=== PATIENT | female | born 1950 | race African-American/Black ===

== ENCOUNTER → 2017-01-30 | Day surgery (SDC) | payer MEDICARE, MEDICAID ==
[~2017-01-30] MED LIST: FLU VACC QS2017-18 36 mo. & older 0.5 ML SYRINGE IM ONE; Iopamidol 300 61% 100 ML VIAL FS ONE
--- OUTSIDE RECORDS SUMMARY | 2017-01-30 06:38 | XMS | Clinical Summary ---
:1950 Author Organization [facility] Address [address] [place] [address] Phone Care Team Providers Name Role Phone , Primary Care Provider Unavailable Allergies No Known Allergies Current Medications Prescription Sig. Disp. Refills Start Date End Date Status aspirin 81 MG EC Take 81 mg by Active tablet mouth daily. PROAIR HFA 90 1 puff every 4 05/01/2015 Active mcg/actuation inhaler (four) hours as needed . salmeterol (SEREVENT) Inhale 1 puff by Active 50 mcg/dose diskus mouth via inhaler inhaler 2 (two) times daily. pantoprazole Take 1 tablet (40 0 09/16/2015 Active (PROTONIX) 40 MG mg total) by tablet mouth daily. sevelamer (RENVELA) Take 800 mg by Active 800 mg tablet mouth 3 (three) times daily with meals. cinacalcet (SENSIPAR) Take 60 mg by Active 60 MG tablet mouth daily. atorvastatin Take 1 tablet (20 30 tablet 11 06/17/2016 06/17/2017 Active (LIPITOR) 20 MG mg total) by tablet mouth nightly. isosorbide Take 0.5 tablets 15 tablet 11 06/17/2016 06/17/2017 Active mononitrate (IMDUR) (15 mg total) by 30 MG 24 hr tablet mouth daily. torsemide (DEMADEX) Take 2 tablets 60 tablet 0 06/17/2016 06/17/2017 Active 20 MG tablet (40 mg total) by mouth daily. glimepiride (AMARYL) Take 4 mg by Active 4 MG tablet mouth 2 (two) times daily. gabapentin Take 100 mg by Active (NEURONTIN) 100 MG mouth 2 (two) capsule times daily as needed. multivitamin with Take 1 tablet by Active minerals tablet mouth daily. losartan (COZAAR) 50 Take 1 tablet (50 30 tablet 0 09/15/2016 Active MG tablet mg total) by mouth 2 (two) times daily. cloNIDine HCl Take 1 tablet 60 tablet 0 09/15/2016 Active (CATAPRES) 0.2 MG (0.2 mg total) by tablet mouth 3 (three) times daily. carvedilol (COREG) 25 Take 1 tablet (25 60 tablet 0 09/15/2016 Active MG tablet mg total) by mouth 2 (two) times daily with breakfast and dinner. amLODIPine (NORVASC) Take 1 tablet (10 30 tablet 0 09/15/2016 Active 10 MG tablet mg total) by mouth daily. senna-docusate Take 1 tablet by 30 tablet 0 12/10/2016 12/10/2017 Active (SENOKOT S) 8.6-50 mg mouth nightly. per tablet Active Problems Problem Noted Date Chronic idiopathic constipation 12/10/2016 Abdominal pain, epigastric 12/09/2016 Vomiting 12/09/2016 Elevated troponin 12/09/2016 End stage renal disease (HCC) 09/12/2016 Normochromic normocytic anemia 06/11/2016 Volume overload 06/10/2016 Type 2 diabetes mellitus with hyperglycemia, without long-term current use of insulin ([facility]) Obesity (BMI 30-39.9) 06/10/2016 Overview: Body mass index is 31.26 kg/(m^2). on 06/11/2016 Neuropathy (HCC) 06/04/2016 Angiopathy, peripheral ([facility]) 06/04/2016 Diastolic CHF, acute on chronic ([facility]) 09/09/2014 Physical deconditioning 06/17/2014 Lower urinary tract infectious disease 06/04/2014 Overview: UPDATED BY ICD10 SNOMED/IMO UPDATES Hypertension 05/25/2014 Overview: She remains poorly controlled and in need of more aggressive Rx. She may need minoxidil. 08/20/14 Supa Kyle MD Resolved Problems Problem Noted Date Resolved Date Chest pain, unspecified type 06/10/2016 09/13/2016 Essential hypertension 06/10/2016 09/13/2016 Acute on chronic combined systolic and diastolic heart 06/10/2016 09/13/2016 failure ([facility]) ESRD (end stage renal disease) ([facility]) 06/10/2016 09/13/2016 Hypoxia 06/14/2015 09/13/2016 Hyperkalemia 06/13/2015 09/13/2016 SOB (shortness of breath) 06/13/2015 09/13/2016 Decubitus ulcer of right heel 05/03/2015 09/13/2016 Hypoxic encephalopathy ([facility]) 03/31/2015 09/13/2016 Respiratory failure with hypoxia ([facility]) 03/30/2015 09/13/2016 hypoxic encephalopathy, moderate 03/30/2015 03/31/2015 Bacteremia 03/25/2015 09/13/2016 Wound infection 03/25/2015 09/13/2016 Pulmonary edema 03/23/2015 09/13/2016 Respiratory distress 03/23/2015 06/14/2015 Chronic kidney disease (CKD) 03/23/2015 09/13/2016 CHF (congestive heart failure), NYHA class III, acute on 03/23/20152014 chronic, combined ([facility]) Accelerated hypertension 09/09/2014 09/13/2016 Sacral decubitus ulcer 09/09/2014 09/13/2016 Metabolic encephalopathy 06/16/2014 09/13/2016 Altered mental status 06/12/2014 09/13/2016 Hypoglycemia 06/12/2014 09/13/2016 Hypomagnesemia 06/04/2014 09/13/2016 Left ear hearing loss 06/03/2014 09/13/2016 Pulmonary HTN ([facility]) 05/30/2014 09/13/2016 CHF (congestive heart failure) ([facility]) 05/25/2014 05/25/2014 Acute on chronic systolic heart failure ([facility]) 05/25/2014 06/16/2014 Decubitus ulcer of sacral region, stage 2 05/25/2014 09/13/2016 Delirium 02/12/2014 05/25/2014 Dysphagia 02/11/2014 05/25/2014 CKD (chronic kidney disease) stage 3, GFR 30-59 ml/min 02/03/2014 05/25/2014 Respiratory failure ([facility]) 01/27/2014 05/25/2014 Pulmonary edema with congestive heart failure with reduced 01/26/20142014 LV function ([facility]) CAD (coronary artery disease) 01/21/2014 09/13/2016 Renal failure 01/21/2014 02/01/2014 Anemia 01/21/2014 09/13/2016 Hypokalemia 01/21/2014 02/01/2014 Acute on chronic systolic CHF (congestive heart failure), 01/14/20142014 NYHA class 3 ([facility]) Respiratory distress 01/14/2014 05/25/2014 Acute on chronic renal failure ([facility]) 01/14/2014 09/13/2016 Leucocytosis 01/14/2014 02/01/2014 DM (diabetes mellitus) ([facility]) 01/14/2014 05/25/2014 Hypertensive emergency 01/14/2014 02/01/2014 Kidney insufficiency 07/18/2013 05/25/2014 Dyspnea 07/14/2013 05/25/2014 SOB (shortness of breath) 07/13/2013 05/25/2014 Hypertension, uncontrolled 07/13/2013 05/25/2014 Diabetes ([facility]) 07/13/2013 05/25/2014 Diabetes mellitus ([facility]) 09/13/2016 Hypertension 09/13/2016 CHF (congestive heart failure) ([facility]) 09/13/2016 Hypertension 09/13/2016 Diabetes mellitus ([facility]) 09/13/2016 Pulmonary edema 09/13/2016 Combined systolic and diastolic cardiac dysfunction 09/13/2016 Combined systolic and diastolic cardiac dysfunction 09/13/2016 Encounters Date Type Specialty Care Team Description 12/09/2016 - Emergency General Internal Gallo Gilbert Abdominal pain, 12/10/2016 Medicine MD Doug epigastric (Primary Kelly Arzate Dx);Non-intractable MD Tammy vomiting with nausea, Colton Andrea MD unspecified vomiting type;Elevated troponin;End stage renal disease ([facility]);Normochromic normocytic anemia;Obesity (BMI 30-39.9) 12/09/2016 Orders Only General Internal Medicine from Last 3 Months Immunizations Name Dates Previously Given Next Due Influenza Three-TIV PF 5+ YRS 03/23/2015 Social History Tobacco Use Types Packs/Day Years Used Date Never Smoker Smokeless Tobacco: Never Used Alcohol Use Drinks/Week oz/Week Comments No Sex Assigned at Date Recorded Not on file Last Filed Vital Signs Vital Sign Reading Time Taken Blood Pressure 100/54 12/10/2016 10:30 AM CDT Pulse 73 12/10/2016 10:30 AM CDT Temperature 36.7 C (98 F) 12/10/2016 10:30 AM CDT Respiratory Rate 18 12/10/2016 10:30 AM CDT Oxygen Saturation 93% 12/10/2016 10:30 AM CDT Inhaled Oxygen Concentration - - Weight 98.8 kg (217 lb 14.4 oz) 12/09/2016 11:06 PM CDT Height 167.6 cm (5' 6") 12/09/2016 11:06 PM CDT Body Mass Index 35.17 12/09/2016 11:06 PM CDT Plan of Treatment Health Maintenance Due Date Last Done Comments INFLUENZA VACCINE 01/26/2017 Results RHYTHM STRIP - SCAN (01/13/2017 10:41 AM)Only the most recent of2 resultswithin the time period is included.Urinalysis w/Microscopic + Reflex to Culture (2016 12:27 PM) Component Value Ref Range Color, UA Yellow Clarity, UA Hazy Specific [place], UA 1.011 1.001 - 1.035 pH, UA 6.0 5.0 - 8.0 Protein, UA 200 mg/dL(A) Negative Glucose, UA Negative Negative Ketones, UA Negative Negative Bilirubin, UA Negative Negative Blood, UA Negative Negative Nitrite, UA Negative Negative Leukocytes, UA Large(A) Negative Urobilinogen, UA 3.0(H) 0.2 - 1.0 mg/dL RBC, UA 0 /HPF WBC, UA 143 /HPF Bacteria, UA Few Squam Epithel, UA 1 /HPF Specimen Source Specimen Performing Laboratory Urine - Urine, Straight Catheter [address] [address] Urine culture (12/10/2016 12:27 PM) Component Value Ref Range Result >100,000 col/mL Escherichia coli(A) Specimen Performing Laboratory Urine - Urine, Straight Catheter [address] [address] Organism Antibiotic Method Susceptibility Escherichia coli Amikacin 4: Susceptible Escherichia coli Ampicillin + Sulbactam >=32: Resistant Escherichia coli Aztreonam <=1: Susceptible Escherichia coli Cefepime <=1: Susceptible Escherichia coli Cefoxitin <=4: Susceptible Escherichia coli Ceftazidime <=1: Susceptible Escherichia coli Ceftriaxone <=1: Susceptible Escherichia coli Ertapenem <=0.5: Susceptible Escherichia coli Gentamicin >=16: Resistant Escherichia coli Levofloxacin >=8: Resistant Escherichia coli Meropenem <=0.25: Susceptible Escherichia coli Nitrofurantoin <=16: Susceptible Escherichia coli Piperacillin + Tazobactam <=4: Susceptible Escherichia coli Tetracycline >=16: Resistant Escherichia coli Tobramycin 8: Resistant Escherichia coli Trimethoprim + Sulfamethoxazole >=320: Resistant POC-Glucose meter (12/10/2016 10:34 AM)Only the most recent of3 resultswithin the time period is included. Component Value Ref Range POC-Glucose Meter 273(H)Comment:TESTED AT [address] 70 - 110 mg/[place] [address] Specimen Performing Laboratory Blood [address] [address] CBC with platelet count + automated diff (12/10/2016 5:07 AM)Only the most recent of2 resultswithin the time period is included. Component Value Ref Range WBC 7.0 3.5 - 10.5 K/L RBC 3.65(L) 3.93 - 5.22 M/L Hemoglobin 9.9(L) 11.2 - 15.7 GM/DL Hematocrit 30.6(L) 34.1 - 44.9 % MCV 83.8 79.4 - 94.8 fL MCH 27.1 25.6 - 32.2 pg MCHC 32.4 32.2 - 35.5 GM/DL RDW 20.2(H) 11.7 - 14.4 % Platelets 161 150 - 450 K/CU MM MPV 11.2 9.4 - 12.3 fL nRBC 0 0 - 0 /100 WBC % Neutros 70 % % Lymphs 19 % % Monos 10 % % Eos 1 % % Baso 0 % # Neutros 4.89 1.56 - 6.13 K/L # Lymphs 1.30 1.18 - 3.74 K/L # Monos 0.72(H) 0.24 - 0.36 K/L # Eos 0.10 0.04 - 0.36 K/L # Baso 0.01 0.01 - 0.08 K/L Immature Granulocytes-Relative 0 0 - 1 % Specimen Performing Laboratory Blood [address] [address] Troponin I (12/10/2016 5:07 AM)Only the most recent of3 resultswithin the time period is included. Component Value Ref Range Troponin I 0.05(H) 0.00 - 0.03 ng/mL Specimen Performing Laboratory Blood [address] [address] Narrative Effective 03/15/2014: Reference Range Change New: 0.00-0.03 Previous 0.00-0.15 Troponin I (TnI) levels must be interpreted in the context of the presenting symptoms and the clinical findings. Elevated TnI levels indicate myocardial damage, but are not specific for ischemic heartdisease. Elevated TnI levels are seen in patients with other cardiac conditions (including myocarditis and congestive heart failure), and slight TnI elevations occur in patients with other conditions, including sepsis , renal failure, acidosis, acute neurological disease, and persistent tachyarrhythmia. CBC with platelet count + automated diff (12/10/2016 5:07 AM)Only the most recent of2 resultswithin the time period is included. Specimen Performing Laboratory Blood Narrative The following orders were created for panel order CBC with platelet count + automated diff. Procedure Abnormality Status --------- ------ CBC with platelet count ...[[id number]]AbnormalFinal result Please view results for these tests on the individual orders. Hemoglobin A1c (12/10/2016 5:07 AM) Component Value Ref Range Hemoglobin A1C 10.3(H) 4.3 - 6.1 % Specimen Performing Laboratory Blood [address] [address] Creatine Kinase (CK), Total and MB (12/10/2016 5:07 AM)Only the most recent of3 resultswithin the time period is included. Component Value Ref Range Total CK 46 29 - 200 U/L CK-MB 1.0 0.0 - 6.6 ng/mL MB Relative Index 2.2 % Specimen Performing Laboratory Blood [address] [address] Narrative Effective 03/15/2014: CK-MB Reference Range Change New: 0.0-6.6Previous: 0.0-4.9 CK-MB Reference Range: <6.7Normal 6.7-10.0Borderline >10.0 Abnormal Basic metabolic panel (12/10/2016 5:07 AM)Only the most recent of2 resultswithin the time period is included. Component Value Ref Range Sodium 139 136 - 145 meq/L Potassium 5.1 3.5 - 5.1 meq/L Chloride 103 98 - 107 meq/L CO2 23 22 - 29 meq/L BUN 54(H) 7 - 21 mg/dL Creatinine 5.87(H) 0.57 - 1.25 mg/dL Glucose 243(H) 70 - 105 mg/dL Calcium 7.7(L) 8.4 - 10.2 mg/dL EGFR 9Comment:ESTIMATED GFR IS NOT ACCURATE CREATININE mL/min/1.73 sq m CLEARANCE IN PREDICTING GLOMERULAR FILTRATION RATE. ESTIMATED GFR IS NOT APPLICABLE FOR DIALYSIS PATIENTS. Specimen Performing Laboratory [place] [address] CT abdomen/pelvis without iv contrast (12/09/2016 6:46 PM) Specimen Performing Laboratory [employer] Narrative FINAL REPORT HISTORY : Abdominal pain, unspecified EMESIS ABDOMINAL PAIN Technique: Multiple axial images of the abdomen and pelvis were performed without the administration of IV or oral contrast. This exam was performed according to our departmental dose optimization program which includes automated exposure control, adjustment of the mA and/or kV according to patient size and/or use of iterative reconstructive technique. COMPARISON :09/13/2016 COMMENT : The patient does have cardiomegaly. There is some bibasilar linear subsegmental atelectasis versus scarring. There are some areas of mosaic attenuation/perfusion in the lung bases. The visualized liver, spleen, adrenal glands, gallbladder, pancreas, stomach and duodenum are within normal limits. There is atherosclerotic vascular disease. The kidneys are atrophic. Arising from the upper pole of the left kidney, there is an indeterminate 5.5 x 4.2 cm hypodense/cystic lesion. Further evaluation with an ultrasound is advised. There is no abdominal, retroperitoneal or pelvic lymphadenopathy. The osseous structures as well as the subcutaneous soft tissues are without any abnormalities. There is no free fluid or free air in the abdomen or pelvis. No findings of any bowel obstruction. The small bowel is within normal limits. The patient does have some long segment thickening identified of the left colon extending from the proximal descending colon to the distal sigmoid colon. While the findings may be related to underdistention, a process such as a nonspecific inflammatory versus infectious versus ischemic colitis cannot be entirely excluded. The appendix is visualized and is within normal limits. The uterus may be atrophic or the patient may be status post hysterectomy. The findings should be correlated with the patient's surgical history. Some nonspecific air is seen within the bladder. Findings could be related to recent instrumentation. There is some mild nonspecific thickening of the bladder wall that may be related to underdistention. A diffuse process such as cystitis or other infiltrative process cannot be entirely excluded. Multilevel degenerative disc changes of the thoracolumbar spine are seen. There is a small midline umbilical antral hernia containing fat. No bowel contents are seen within the hernia. Impression: 1. Examination limited without the administration of IV or oral contrast. 2. Long segment thickening of the left colon, underdistention versus nonspecific colitis. 3. Atrophic [place]ka kidneys. There is an indeterminate cystic/hypodense lesion in the left renal upper pole. Correlation with an ultrasound or CT, renal mass protocol, is advised. 4. Cardiomegaly. 5. Atherosclerotic vascular disease. 6. Nonspecific air within the bladder. There is some mild nonspecific bladder wall thickening. Signed: Santiago Ahn MD Report Verified Date/Time:12/09/2016 18:54:11 Reading Location: [facility] C013Y CT Body Reading Room Procedure Note Interface, External Ris In - 12/09/2016 6:56 PM CDT FINAL REPORT HISTORY : Abdominal pain, unspecified EMESIS ABDOMINAL PAIN Technique: Multiple axial images of the abdomen and pelvis were performed without the administration of IV or oral contrast. This exam was performed according to our departmental dose optimization program which includes automated exposure control, adjustment of the mA and/or kV according to patient size and/or use of iterative reconstructive technique. COMPARISON : 09/13/2016 COMMENT : The patient does have cardiomegaly. There is some bibasilar linear subsegmental atelectasis versus scarring. There are some areas of mosaic attenuation/perfusion in the lung bases. The visualized liver, spleen, adrenal glands, gallbladder, pancreas, stomach and duodenum are within normal limits. There is atherosclerotic vascular disease. The kidneys are atrophic. Arising from the upper pole of the left kidney, there is an indeterminate 5.5 x 4.2 cm hypodense/cystic lesion. Further evaluation with an ultrasound is advised. There is no abdominal, retroperitoneal or pelvic lymphadenopathy. The osseous structures as well as the subcutaneous soft tissues are without any abnormalities. There is no free fluid or free air in the abdomen or pelvis. No findings of any bowel obstruction. The small bowel is within normal limits. The patient does have some long segment thickening identified of the left colon extending from the proximal descending colon to the distal sigmoid colon. While the findings may be related to underdistention, a process such as a nonspecific inflammatory versus infectious versus ischemic colitis cannot be entirely excluded. The appendix is visualized and is within normal limits. The uterus may be atrophic or the patient may be status post hysterectomy. The findings should be correlated with the patient's surgical history. Some nonspecific air is seen within the bladder. Findings could be related to recent instrumentation. There is some mild nonspecific thickening of the bladder wall that may be related to underdistention. A diffuse process such as cystitis or other infiltrative process cannot be entirely excluded. Multilevel degenerative disc changes of the thoracolumbar spine are seen. There is a small midline umbilical antral hernia containing fat. No bowel contents are seen within the hernia. Impression: 1. Examination limited without the administration of IV or oral contrast. 2. Long segment thickening of the left colon, underdistention versus nonspecific colitis. 3. Atrophic [place] kidneys. There is an indeterminate cystic/hypodense lesion in the left renal upper pole. Correlation with an ultrasound or CT, renal mass protocol, is advised. 4. Cardiomegaly. 5. Atherosclerotic vascular disease. 6. Nonspecific air within the bladder. There is some mild nonspecific bladder wall thickening. Signed: Santiago Ahn MD Report Verified Date/Time: 12/09/2016 18:54:11 Reading Location: [facility] B1 C013Y CT Body Reading Room 12 lead (12/09/2016 4:11 PM) Specimen Performing Laboratory [facility] Narrative Ventricular Rate 82 BPM Atrial Rate 82 BPM P-R Interval 268 ms QRS Duration 120 ms Q-T Interval 436 ms QTC Calculation(Bazett) 509 ms P Marion 85 degrees R Marion -5 degrees T Marion 131 degrees Sinus rhythm with 1st degree A-V block Possible Left atrial enlargement Septal infarct , age undetermined ST & T wave abnormality, consider lateral ischemia Prolonged QT Abnormal ECG When compared with ECG of 13-SEP-2016 12:22, Septal infarct is now Present Criteria for LVH are no longer seen Confirmed by MD BEYER YOCHAI ([id number]) on 12/10/2016 6:50:09 AM Procedure Note Interface, External Ris In - 12/10/2016 6:50 AM CDT Ventricular Rate 82 BPM Atrial Rate 82 BPM P-R Interval 268 ms QRS Duration 120 ms Q-T Interval 436 ms QTC Calculation(Bazett) 509 ms P Marion 85 degrees R Marion -5 degrees T Marion 131 degrees Sinus rhythm with 1st degree A-V block Possible Left atrial enlargement Septal infarct , age undetermined ST & T wave abnormality, consider lateral ischemia Prolonged QT Abnormal ECG When compared with ECG of 13-SEP-2016 12:22, Septal infarct is now Present Criteria for LVH are no longer seen Confirmed by MD BEYER YOCHAI ([id number]) on 12/10/2016 6:50:09 AM Lipase (12/09/2016 3:38 PM) Component Value Ref Range Lipase 22 8 - 78 U/L Specimen Performing Laboratory Blood - Arm, [place] [address] Hepatic function panel (12/09/2016 3:38 PM) Component Value Ref Range Protein, Total 8.0 6.0 - 8.3 gm/dL Albumin 3.9 3.5 - 5.0 g/dL Total Bilirubin 0.5 0.2 - 1.2 mg/dL Bilirubin, Direct 0.2 0.1 - 0.5 mg/dL Alkaline Phosphatase 111 40 - 150 U/L AST 16 5 - 34 U/L ALT 8 6 - 55 U/L Specimen Performing Laboratory Blood - [place], [address] [address] from Last 3 Months
--- OUTSIDE RECORDS SUMMARY | 2017-01-30 06:38 | XMS | Clinical Summary ---
:1950 Author Organization [facility] Address [address] [place] [address] Phone Care Team Providers Name Role Phone Asked, No Primary Care Provider Unavailable Allergies No Known Allergies Current Medications Prescription Sig. Disp. Refills Start Date End Date Status sevelamer (RENVELA) 800 mg Take 800 mg by Active tablet mouth 3 (three) times a day with meals. carvedilol (COREG) 25 MG Take 25 mg by Active tablet mouth 2 (two) times a day with meals. glimepiride (AMARYL) 4 MG Take 4 mg by mouth Active tablet daily before breakfast. clonIDINE HCl (CATAPRES) Take 0.3 mg by Active 0.3 MG tablet mouth 3 (three) times a day. FOLIC ACID/VIT BCOMP,C Take by mouth. Active (DOROTHEA-LUIS E ORAL) cinacalcet (SENSIPAR) 30 Take 30 mg by Active MG tablet mouth daily. losartan (COZAAR) 50 MG Take 50 mg by Active tablet mouth daily. docusate sodium Take 100 mg by Active (DOC-Q-LACE) 100 MG mouth 2 (two) capsule times a day. acetaminophen (TYLENOL) Take 500 mg by Active 500 MG tablet mouth every 6 (six) hours as needed for mild pain. aspirin (ECOTRIN) 81 MG Take 81 mg by Active enteric coated tablet mouth daily. gabapentin (NEURONTIN) 100 Take 100 mg by Active MG capsule mouth 2 (two) times a day as needed. Active Problems Problem Noted Date ESRD (end stage renal disease) 2015 MWF 06/04/2016 HTN (hypertension) 06/04/2016 DM (diabetes mellitus) 06/04/2016 Neuropathy 06/04/2016 PAD (peripheral artery disease) 06/04/2016 S/P emergency tracheotomy for assistance in breathing 200906/04/2016 Social History Tobacco Use Types Packs/Day Years Used Date Never Smoker Smokeless Tobacco: Never Used Alcohol Use Drinks/Week oz/Week Comments No Sex Assigned at Date Recorded Not on file Last Filed Vital Signs Vital Sign Reading Time Taken Blood Pressure 150/65 06/04/2016 8:43 AM CAD PROGRAMMER Pulse 79 06/04/2016 8:43 AM CAD PROGRAMMER Temperature 36.7 C (98 F) 06/04/2016 8:43 AM CAD PROGRAMMER Respiratory Rate 14 06/04/2016 8:43 AM CAD PROGRAMMER Oxygen Saturation 100% 03/14/2016 1:00 PM CAD PROGRAMMER Inhaled Oxygen Concentration - - Weight 84.4 kg (186 lb) 06/04/2016 8:43 AM CAD PROGRAMMER Height 157.5 cm (5' 2") 06/04/2016 8:43 AM CAD PROGRAMMER Body Mass Index 34.02 06/04/2016 8:43 AM CAD PROGRAMMER Plan of Treatment Health Maintenance Due Date Last Done Comments FOOT EXAM 1962 OPHTHALMOLOGY EXAM 1962 URINE MICROALBUMIN 1962 PAP SMEAR 1973 COLONOSCOPY 2002 MAMMOGRAM 2002 ZOSTER VACCINE 2012 INFLUENZA VACCINE 11/26/2016 Implants Implanted Type [facility] Officer Device Expiration Model / Identifier Date Serial / Lot Clip Ligtng Weck Hemoclip Plus W/ Tape Ti - [id number] Medical Left: WECK CLOSURE 10/03/2020 [id number] / Implanted:Qty: 1 on 03/14/2016 by Mahesh Franco MD Clips for Arm, SYSTEMS / Internal Use Upper [id number] Clip Ligtng Weck Hemoclip Plus W/ Tape Ti [facility] - [id number] Medical Left: TELEFLEX MEDICAL 10/31/2020 [id number] / Implanted:Qty: 1 on 03/14/2016 by Mahesh Franco MD Clips for Arm, / Internal Use Upper [id number] Results Not on filefrom Last 3 Months Insurance Payer Benefit Plan / Group Subscriber ID Type Phone Address MEDICARE MEDICARE PART A AND B [id number] Medicare [place], [place] MEDICAID MEDICAID [id number] Medicaid
[2017-01-30 07:19] VITALS: TEMP 97.6; BMI 35.4
--- NOTE | 2017-01-30 08:58 | SPC ---
LEFT UPPER EXTREMITY DIALYSIS FISTULOGRAM: HISTORY: Renal failure. Elevated venous pressures and fistula. FINDINGS: After explaining the procedure and answering all questions, the left upper extremity was prepped and draped in the usual sterile fashion. Sterile technique, buffered local anesthesia, and a 22-gauge needle were used to carefully access the peripheral portion of a left arm cephalic dialysis fistula. A 4 Surinamese glide cath was carefully placed for serial imaging, showing a widely patent cephalic fi stula with good venous outflow. Scattered collaterals are visualized. There is no obstruction of f low or significant stenosis apparent. Superior vena cava is patent. A 5 Surinamese glide cath was unable to be placed, and decision was made to not place a 6 Surinamese sheath for further imaging. The catheter was removed and hemostasis was obtained using direct pressure. T he patient tolerated the procedure well and was returned to the holding area in good condition for f urther monitoring. Fluoro time=0.04 minutes. IMPRESSION: Widely patent and good flowing left upper arm cephalic dialysis fistula without evidence of stenosis or other complication. POS: [facility]
== END ==
LOC: SPEC 06:34
PROVIDERS: ATTEND Internal Medicine Nephrology
PROC: B51WYZZ Fluoroscopy of Dialysis Shunt/Fistula using Other Contrast (ICD-10-PCS; principal; 2017-01-30)
DX: N19 Unspecified kidney failure (principal); I87.8 Other specified disorders of veins; F17.200 Nicotine dependence, unspecified, uncomplicated; Z79.84 Long term (current) use of oral hypoglycemic drugs; Z79.82 Long term (current) use of aspirin; Z79.899 Other long term (current) drug therapy; Z99.2 Dependence on renal dialysis; Z88.5 Allergy status to narcotic agent; Z88.8 Allergy status to other drugs, medicaments and biological substances; Z91.040 Latex allergy status
CPT/HCPCS: 36901; C1769

== ENCOUNTER 2017-02-02 18:57 | Inpatient (IN) | payer MEDICARE, MEDICAID ==
[2017-02-02 19:31] LABS: Oxyhemoglobin 91.6 % (94.0-97.0); Sodium 137 mmol/L (135-148)
[2017-02-02 19:46] LABS: #Lymphocytes 0.8 thou/uL (1.20-3.40); #Monocytes 0.4 thou/uL (0.11-0.59); #Neutrophils 8.6 thou/uL (1.40-6.50); %Basophils 0.2 % (0.0-1.0); %Eosinophils 0.4 % (0.0-10.0); %Lymphocytes 8.3 % (21.0-51.0); %Monocytes 3.6 % (0.0-10.0); Hematocrit 31.7 % (36.0-47.0); Mean Platelet Volume 8.1 fL (7.4-10.4); White Blood Cell (WBC) Count 9.8 thou/uL (4.8-10.8)
[2017-02-02 19:56] LABS: Mode NC; Modified Allen's Test POSITIVE
[2017-02-02 20:08] LABS: ALT (SGPT) Less than 7 U/L (8-55); AST (SGOT) 12 U/L (5-34); Alkaline Phosphatase 101 U/L (40-150); Anion Gap 17 mmol/L (10-20); BUN (Urea Nitrogen) 42 mg/dL (9.8-20.1); Bilirubin, Total 0.5 mg/dL (0.2-1.2); CK (CPK) 52 U/L (29-168); Calc. Creatinine Clearance 0 mL/min (70-130); Calcium 9.3 mg/dL (7.8-10.44); Carbon Dioxide 30 mmol/L (23-31); Chloride 95 mmol/L (98-107); Estimated GFR-MDRD 8; Globulin 4.2 g/dL (2.4-3.5); Lipase 12 U/L (8-78); Protein, Total 7.9 g/dL (6.0-8.3)
[2017-02-02 20:09] LABS: Lactic Acid - Sepsis 1.5 mmol/L (0.5-2.2)
[2017-02-02 20:11] LABS: Troponin I 0.048 ng/mL (< 0.028)
[2017-02-02] MEDS ORDERED: Acetaminophen 500 MG TAB ONE (20:29)
[2017-02-02 20:34] LABS: Bilirubin Negative (Negative); Blood, Urine Small (Negative); Glucose, Urine (Dipstick) Negative (Negative); Ketone, Urine Negative (Negative); Nitrite Negative (Negative); Protein, Urine (Dipstick) 300 mg/dL (Neg-Trace); Urobilinogen 0.2 mg/dL (0.2-1.0)
[2017-02-02 20:36] LABS: Bacteria/HPF 4+ HPF (None Seen); Hyaline Casts/LPF 7-10 HYALINE CAST LPF (0-3 Hyaline); RBC/HPF 0-3 HPF (0-3); Squamous Epithelial 0-3 HPF (0-3)
--- NOTE | 2017-02-02 20:40 | RAD ---
PORTABLE CHEST ONE VIEW: Date: 02-02-17 Time: 8:31 a.m. History: Dyspnea, weakness. FINDINGS/IMPRESSION: The heart is enlarged. There is pulmonary vasculature congestion. No pneumothoraces or large effusio ns are seen. POS: [facility]
[2017-02-02] MEDS ORDERED: cefTRIAXone\\ROCEPHIN 1 GM VIAL ONE (22:13)
[2017-02-03 00:28] LABS: Troponin I 0.061 ng/mL (< 0.028)
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
[2017-02-03] MEDS ORDERED: Acetaminophen 325 MG TAB PO PRN ×2 (00:47→00:48)
[2017-02-03] MEDS ORDERED: Ondansetron HCl/PF 4 MG/2 ML Vial IVP PRN ×2 (00:47→00:48)
[2017-02-03] MEDS ORDERED: Ondansetron ODT 4 MG TAB SL PRN (00:47)
[2017-02-03] MEDS ORDERED: Ondansetron ODT 4 MG TAB PO PRN (00:48)
[2017-02-03] MEDS ORDERED: Mag-Al 1200 mg/1200 mg/30 ML UDCUP PO PRN (00:48)
[2017-02-03] MEDS ORDERED: HumaLOG 300 UNITS/3 ML VIAL SC PRN (00:48)
[2017-02-03] MEDS ORDERED: Dextrose 50% Abboject 50 ML SYRINGE SLOW IVP PRN (00:48)
[2017-02-03] MEDS ORDERED: Zolpidem Tartrate 5 MG TAB PO PRN (00:48)
[2017-02-03] MEDS ORDERED: Milk Of Magnesia 30 ML UDCUP PO PRN (00:48)
[2017-02-03] MEDS ORDERED: Senokot 8.6 MG TAB PO PRN (00:48)
[2017-02-03] MEDS ORDERED: Dextrose 5% in Water 1,000 ML IV PRN (00:48)
[2017-02-03] MEDS ORDERED: Loperamide HCl 2 MG CAP PO PRN (00:48)
[2017-02-03 01:54] VITALS: BMI 37.7
[2017-02-03 02:46] LABS: #Lymphocytes 1.4 thou/uL (1.20-3.40); #Monocytes 0.4 thou/uL (0.11-0.59); #Neutrophils 7.3 thou/uL (1.40-6.50); %Basophils 0.3 % (0.0-1.0); %Eosinophils 0.5 % (0.0-10.0); %Monocytes 4.4 % (0.0-10.0); Hematocrit 25.9 % (36.0-47.0); Mean Platelet Volume 8.3 fL (7.4-10.4); White Blood Cell (WBC) Count 9.1 thou/uL (4.8-10.8)
[2017-02-03 03:09] LABS: Troponin I 0.067 ng/mL (< 0.028)
[2017-02-03 03:30] LABS: ALT (SGPT) Less than 7 U/L (8-55); AST (SGOT) 10 U/L (5-34); Alkaline Phosphatase 77 U/L (40-150); Anion Gap 16 mmol/L (10-20); BUN (Urea Nitrogen) 41 mg/dL (9.8-20.1); Bilirubin, Total 0.4 mg/dL (0.2-1.2); Calc. Creatinine Clearance 15 mL/min (70-130); Calcium 7.7 mg/dL (7.8-10.44); Carbon Dioxide 25 mmol/L (23-31); Chloride 91 mmol/L (98-107); Estimated GFR-MDRD 9; Globulin 3.3 g/dL (2.4-3.5); Protein, Total 6.4 g/dL (6.0-8.3)
--- NOTE | 2017-02-03 08:14 | PDOC.PN ---
- Subjective Encounter Start Date: 01/27/17 Encounter Start Time: 08:10 Subjective: RUQ pain - Objective Resuscitation Status: Resuscitation Status FULL:Full Resuscitation MAR Reviewed: Yes Vital Signs & Weight: Vital Signs (12 hours) Temp Pulse Resp BP Pulse Ox 02/03/17 01:58 98.0 F 78 14 92 L 02/03/17 00:26 98.0 F 78 14 129/60 92 L Weight Weight 219 lb 14.4 oz I&O: 02/02/17 02/03/17 02/04/17 06:59 06:59 06:59 Intake Total 200 Balance 200 Result Diagrams: 02/03/17 02:33 02/03/17 02:33 Additional Labs: Accuchecks 02/03/17 06:02 POC Glucose 95 Radiology Reviewed by me: Yes (cxr- cardiomagaly, PVC) Phys Exam - Physical Examination Constitutional: NAD Neck: no JVD post rales Cardiovascular: RRR, no significant murmur tender RUQ, BS pos, no mass Musculoskeletal: edema present Dx/Plan (1) Abdominal pain, acute, right upper quadrant Code(s): R10.11 - RIGHT UPPER QUADRANT PAIN Status: Acute (2) Sepsis Code(s): A41.9 - SEPSIS, UNSPECIFIED ORGANISM Status: Acute Qualifiers: Sepsis type: sepsis due to unspecified organism Qualified Code(s): A41.9 - Sepsis, unspecified organism (3) UTI (urinary tract infection) Status: Acute Qualifiers: Urinary tract infection type: site unspecified (4) DM type 2 causing ESRD Code(s): E11.22 - TYPE 2 DIABETES MELLITUS W DIABETIC CHRONIC KIDNEY DISEASE; N18.6 - END STAGE RENAL DISEASE Status: Chronic (5) HTN (hypertension) Code(s): I10 - ESSENTIAL (PRIMARY) HYPERTENSION Status: Chronic Qualifiers: Hypertension type: essential hypertension Qualified Code(s): I10 - Essential (primary) hypertension - Plan zHD per Dr Ware -: abd US for poss cholecystitsi -: Await C&S, cont iv antibx -: cont accu/ss/etc -: MS for pain * .
[2017-02-03] MEDS ORDERED: Morphine Sulfate 2 MG/ML SYRINGE SLOW IVP PRN (08:19)
--- NOTE | 2017-02-03 08:57 | CON ---
DATE OF CONSULTATION: 02/03/2017 REASON FOR CONSULTATION: Stage 6 chronic kidney disease, on maintenance hemodialysis. HISTORY OF PRESENT ILLNESS: This is a very pleasant 66-year-old female on dialysis Friday, , and Friday. She presented to the hospital with sepsis and urinary tract infection. The patient was admitted for generalized weakness and cough and shortness of breath. The patient denies headach e, numbness, tingling or weakness. The patient was treated with Cipro. PAST MEDICAL HISTORY: 1. Hypertension. 2. Diabetes mellitus. 3. Anemia. 4. Secondary hyperparathyroidism. 5. End-stage renal disease. 6. Osteoarthritis. 7. History of AV fistula. 8. History of tunneled dialysis catheter. SOCIAL HISTORY: No alcohol or drug use. FAMILY HISTORY: Negative for ESRD. ALLERGIES: Reviewed. HOME MEDICATIONS: List reviewed. REVIEW OF SYSTEMS: Fifteen point review of systems was performed and negative except positives as n oted above. GENERAL: Weakness- HEAD: Headache- NECK: No swelling or lumps. NOSE: No epistaxis or discharge. EYES: No diplopia or pain. RESPIRATORY: Dyspnea- CARDIOVASCULAR: Chest pain- GASTROINTESTINAL: Nausea- /BLAST SETTER: Hematuria- MUSCULOSKELETAL: No joint pain. NEUROPSYCHIATIC SYSTEMS: No suicidal ideation. No ideation. SKIN: Denies any rash or ulcer. CONSTITUTIONAL: No fever or chills. PHYSICAL EXAMINATION: GENERAL: Patient is awake, alert. VITAL SIGNS: Afebrile, pulse 87, breathing at 16, blood pressure 159/69. OBJECTIVE: See above. Awake, alert, in no acute distress. GENERAL APPEARANCE AND MENTAL STATUS: Fair. HEAD/NECK: Normocephalic. Atraumatic. EYES: EOMI. No deformity. EARS: Clear. No ulcers. NOSE: Intact. No lesions. MOUTH: Clear. No discharge. THROAT: Clear. No exudate. LUNGS: Clear. No crackles. CARDIAC: S1, S2. No rub. ABDOMEN: Benign. BS+. GENITALIA/RECTUM: Hylton absent. BACK/EXTREMITIES: Edema 0+ Ulcer- NEUROLOGICAL: Alert and motor intact. SKIN: Rash- Bruise- LYMPHATICS: Edema- Ulcer- LABORATORY: Hemoglobin 8.4, creatinine 5.9. ASSESSMENT AND RECOMMENDATIONS: 1. Stage 6 chronic kidney disease. Continue hemodialysis per schedule today. 2. Hypertension, stable. 3. Anemia, stable. 4. Medication based on glomerular filtration rate are appropriate. 5. Secondary hyperparathyroidism. Continue vitamin D. 6. Anemia. We will follow hemoglobin and continue Epogen.
[2017-02-03] MEDS: Sevelamer Carbonate 800 MG TAB PO SCH ×3 (09:52→17:54)
[2017-02-03] MEDS: Folic Acid/Vit B Comp W-C PO SCH (09:52)
[2017-02-03] MEDS: Cinacalcet HCl 30 MG TAB PO SCH (09:52)
[2017-02-03] MEDS: Heparin 5,000 UNITS/ML VIAL SC SCH ×2 (09:56→21:30)
[2017-02-03] MEDS: Gabapentin 300 MG CAP PO SCH ×2 (14:42→21:29)
[2017-02-03] MEDS: Carvedilol 25 MG TAB PO SCH ×2 (14:42→15:06)
[2017-02-03] MEDS: Ferrous Sulfate 325 MG TAB PO SCH (14:42)
[2017-02-03] MEDS: Losartan Potassium 25 MG TAB PO SCH ×2 (14:43→21:31)
[2017-02-03] MEDS: Saccharomyces boulardii 250 MG CAP PO SCH (14:43)
[2017-02-03] MEDS ORDERED: Atorvastatin Calcium 10 MG TAB PO SCH (21:00)
[2017-02-03] MEDS: cefTRIAXone\\ROCEPHIN 1 GM in Sodium Chloride 0.9% 100 ML IVPB SCH (21:49)
--- NOTE | 2017-02-04 07:52 | PRG ---
DATE OF SERVICE: 02/04/2017 SUBJECTIVE: This is a 66-year-old female being seen for end-stage renal disease. The patient denie s any nausea, vomiting or chest pain. PHYSICAL EXAMINATION: GENERAL: Patient is awake, alert. VITAL SIGNS: Afebrile, pulse 76, breathing at 16, blood pressure 132/59. GENERAL APPEARANCE AND MENTAL STATUS: Fair. HEAD/NECK: Normocephalic. Atraumatic. EYES: EOMI. No deformity. EARS: Clear. No ulcers. NOSE: Intact. No lesions. MOUTH: Clear. No discharge. THROAT: Clear. No exudate. LUNGS: Clear. No crackles. CARDIAC: S1, S2. No rub. ABDOMEN: Benign. BS+. GENITALIA/RECTUM: Hylton absent. BACK/EXTREMITIES: Edema 0+ Ulcer- NEUROLOGICAL: Alert and motor intact. SKIN: Rash- Bruise- LYMPHATICS: Edema- Ulcer- LABORATORY DATA: Show hemoglobin 8.4. ASSESSMENT AND PLAN: 1. Stage 6 chronic kidney disease. Continue hemodialysis Friday, Friday, Friday 2. Hypertension, stable. 3. Anemia, stable. 4. Medications based on glomerular filtration rate are appropriate. 5. Pneumonia, management per primary team.
[2017-02-04] MEDS: Losartan Potassium 25 MG TAB PO SCH ×2 (08:11→20:30)
[2017-02-04] MEDS: Folic Acid/Vit B Comp W-C PO SCH (08:11)
[2017-02-04] MEDS: Saccharomyces boulardii 250 MG CAP PO SCH (08:11)
[2017-02-04] MEDS: Gabapentin 300 MG CAP PO SCH (08:11)
[2017-02-04] MEDS: Carvedilol 25 MG TAB PO SCH ×2 (08:12→20:30)
[2017-02-04] MEDS: Heparin 5,000 UNITS/ML VIAL SC SCH ×2 (08:13→20:32)
[2017-02-04] MEDS: Cinacalcet HCl 30 MG TAB PO SCH (08:13)
[2017-02-04] MEDS: Sevelamer Carbonate 800 MG TAB PO SCH ×3 (08:14→17:03)
[2017-02-04] MEDS: Ferrous Sulfate 325 MG TAB PO SCH (08:14)
--- NOTE | 2017-02-04 08:14 | ULT ---
ULTRASOUND ABDOMEN LIMITED: (RIGHT UPPER QUADRANT) HISTORY: 66-year-old female with right upper quadrant abdominal pain. FINDINGS: The gallbladder has normal wall thickness and has no evidence of gallstones or sludge. The hepatic echogenicity is normal. The right kidney has normal echogenicity and has no hydronephrosis. The pa ncreas is visualized, although ultrasound is relatively insensitive for pancreatic pathology compare d to CT and MRI. There is no biliary dilation. The common duct caliber is 5 mm. IMPRESSION: Normal. iván [] POS: [facility]
--- NOTE | 2017-02-04 09:39 | PDOC.PN ---
- Subjective Encounter Start Date: 02/04/17 Encounter Start Time: 09:37 Subjective: much improved, no pain or fever - Objective Resuscitation Status: Resuscitation Status FULL:Full Resuscitation MAR Reviewed: Yes Vital Signs & Weight: Vital Signs (12 hours) Temp Pulse Resp BP BP Pulse Ox 02/04/17 08:10 72 133/60 02/04/17 08:06 98.6 F 72 18 133/60 92 L 02/04/17 04:00 98.9 F 76 20 132/59 L 93 L 02/03/17 22:32 96 Weight Weight 215 lb 4.8 oz I&O: 02/03/17 02/04/17 02/05/17 06:59 06:59 06:59 Intake Total 200 998 Output Total 3000 Balance 200 -2001 Result Diagrams: 02/03/17 02:33 02/03/17 02:33 Additional Labs: Accuchecks 02/04/17 02/03/17 02/03/17 06:21 21:18 16:02 POC Glucose 105 87 73 02/03/17 14:56 POC Glucose 60 L Phys Exam - Physical Examination Constitutional: NAD Neck: no JVD Respiratory: clear to auscultation bilateral Cardiovascular: RRR, no significant murmur Gastrointestinal: soft, non-tender, positive bowel sounds Musculoskeletal: edema present Dx/Plan (1) Abdominal pain, acute, right upper quadrant Code(s): R10.11 - RIGHT UPPER QUADRANT PAIN Status: Resolved (2) Sepsis Code(s): A41.9 - SEPSIS, UNSPECIFIED ORGANISM Status: Acute Qualifiers: Sepsis type: sepsis due to unspecified organism Qualified Code(s): A41.9 - Sepsis, unspecified organism (3) UTI (urinary tract infection) Status: Acute Qualifiers: Urinary tract infection type: site unspecified (4) DM type 2 causing ESRD Code(s): E11.22 - TYPE 2 DIABETES MELLITUS W DIABETIC CHRONIC KIDNEY DISEASE; N18.6 - END STAGE RENAL DISEASE Status: Chronic (5) HTN (hypertension) Code(s): I10 - ESSENTIAL (PRIMARY) HYPERTENSION Status: Chronic Qualifiers: Hypertension type: essential hypertension Qualified Code(s): I10 - Essential (primary) hypertension - Plan urine C&S- e coli sensitive to rocephin- cont -: cont accu/ss -: selelected home meds -: home on po antibx1-2 days * .
[2017-02-04] MEDS: HumaLOG 300 UNITS/3 ML VIAL SC PRN (17:04)
[2017-02-04] MEDS: Atorvastatin Calcium 20 MG TAB PO SCH (20:31)
[2017-02-04] MEDS: cefTRIAXone\\ROCEPHIN 1 GM in Sodium Chloride 0.9% 100 ML IVPB SCH (20:32)
--- NOTE | 2017-02-05 08:08 | PRG ---
DATE OF SERVICE: 02/05/2017 SUBJECTIVE: This is a 66-year-old female being seen for end-stage renal disease. The patient denie s any nausea, vomiting or chest pain. PHYSICAL EXAMINATION: GENERAL: Patient is awake, alert. VITAL SIGNS: Afebrile, pulse 74, breathing at 16, blood pressure 156/77. GENERAL APPEARANCE AND MENTAL STATUS: Fair. HEAD/NECK: Normocephalic. Atraumatic. EYES: EOMI. No deformity. EARS: Clear. No ulcers. NOSE: Intact. No lesions. MOUTH: Clear. No discharge. THROAT: Clear. No exudate. LUNGS: Clear. No crackles. CARDIAC: S1, S2. No rub. ABDOMEN: Benign. BS+. GENITALIA/RECTUM: Hylton absent. BACK/EXTREMITIES: Edema 0+ Ulcer- NEUROLOGICAL: Alert and motor intact. SKIN: Rash- Bruise- LYMPHATICS: Edema- Ulcer- LABORATORY DATA: None today. ASSESSMENT AND RECOMMENDATIONS: 1. Stage 6 chronic kidney disease, continue hemodialysis. 2. Hypertension, stable. 3. Anemia, stable. 4. Medications based on glomerular filtration rate are appropriate.
[2017-02-05] MEDS: Sevelamer Carbonate 800 MG TAB PO SCH ×3 (08:34→18:02)
[2017-02-05 08:45] LABS: Hematocrit 30.2 % (36.0-47.0)
--- NOTE | 2017-02-05 08:51 | PDOC.PN ---
- Subjective Encounter Start Date: 02/05/17 Encounter Start Time: 15:32 Subjective: post HD, no fever, etc - Objective Resuscitation Status: Resuscitation Status FULL:Full Resuscitation MAR Reviewed: Yes Vital Signs & Weight: Vital Signs (12 hours) Temp Pulse Resp BP Pulse Ox 02/05/17 00:09 98.2 F 72 18 174/77 H 98 Weight Weight 215 lb 4.8 oz I&O: 02/04/17 02/05/17 02/06/17 06:59 06:59 06:59 Intake Total 998 660 Output Total 3000 -2001 660 Result Diagrams: 02/05/17 08:25 02/05/17 08:25 Additional Labs: Accuchecks 02/05/17 02/04/17 02/04/17 05:03 19:53 16:11 POC Glucose 104 144 H 155 H 02/04/17 11:27 POC Glucose 89 Phys Exam - Physical Examination Constitutional: NAD Neck: no JVD Respiratory: clear to auscultation bilateral Cardiovascular: RRR, no significant murmur Gastrointestinal: soft, non-tender Musculoskeletal: no edema Dx/Plan (1) Abdominal pain, acute, right upper quadrant Code(s): R10.11 - RIGHT UPPER QUADRANT PAIN Status: Resolved (2) Sepsis Code(s): A41.9 - SEPSIS, UNSPECIFIED ORGANISM Status: Acute Qualifiers: Sepsis type: Escherichia coli Qualified Code(s): A41.51 - Sepsis due to Escherichia coli [E. coli] (3) UTI (urinary tract infection) Status: Acute Qualifiers: Urinary tract infection type: site unspecified (4) DM type 2 causing ESRD Code(s): E11.22 - TYPE 2 DIABETES MELLITUS W DIABETIC CHRONIC KIDNEY DISEASE; N18.6 - END STAGE RENAL DISEASE Status: Chronic (5) HTN (hypertension) Code(s): I10 - ESSENTIAL (PRIMARY) HYPERTENSION Status: Chronic Qualifiers: Hypertension type: essential hypertension Qualified Code(s): I10 - Essential (primary) hypertension - Plan cont iv antibx, proble DC on po meds tomorrow -: 3x weekly HD -: cont asa, coreg, statin, etc * .
[2017-02-05] MEDS ORDERED: CINACALCET HCL 60 MG PO SCH (09:00)
[2017-02-05 09:07] LABS: Anion Gap 13 mmol/L (10-20); BUN (Urea Nitrogen) 19 mg/dL (9.8-20.1); Calc. Creatinine Clearance 28 mL/min (70-130); Calcium 9.3 mg/dL (7.8-10.44); Carbon Dioxide 31 mmol/L (23-31); Chloride 99 mmol/L (98-107); Estimated GFR-MDRD 18
[2017-02-05] MEDS: Cinacalcet HCl 30 MG TAB PO SCH (11:36)
[2017-02-05] MEDS: Aspirin 81 mg Enteric Coated Tablet PO SCH (11:36)
[2017-02-05] MEDS: Ferrous Sulfate 325 MG TAB PO SCH (11:36)
[2017-02-05] MEDS: Carvedilol 25 MG TAB PO SCH ×2 (11:36→21:55)
[2017-02-05] MEDS: Heparin 5,000 UNITS/ML VIAL SC SCH ×2 (11:37→20:24)
[2017-02-05] MEDS: Folic Acid/Vit B Comp W-C PO SCH (11:37)
[2017-02-05] MEDS: Gabapentin 300 MG CAP PO SCH (11:37)
[2017-02-05] MEDS: Losartan Potassium 25 MG TAB PO SCH ×2 (11:38→21:55)
[2017-02-05] MEDS: Saccharomyces boulardii 250 MG CAP PO SCH (11:38)
[2017-02-05] MEDS: HumaLOG 300 UNITS/3 ML VIAL SC PRN ×2 (18:03→18:10)
[2017-02-05] MEDS: Atorvastatin Calcium 20 MG TAB PO SCH (20:24)
[2017-02-05] MEDS: cefTRIAXone\\ROCEPHIN 1 GM in Sodium Chloride 0.9% 100 ML IVPB SCH (21:59)
--- NOTE | 2017-02-06 09:22 | PRG ---
DATE OF SERVICE: 02/06/2017 SUBJECTIVE: This is a 66-year-old female being seen for end-stage renal disease. The patient denie s any nausea, vomiting or chest pain. PHYSICAL EXAMINATION: GENERAL: Patient is awake, alert. VITAL SIGNS: Afebrile, pulse 65, breathing at 16, blood pressure 137/62. GENERAL APPEARANCE AND MENTAL STATUS: Fair. HEAD/NECK: Normocephalic. Atraumatic. EYES: EOMI. No deformity. EARS: Clear. No ulcers. NOSE: Intact. No lesions. MOUTH: Clear. No discharge. THROAT: Clear. No exudate. LUNGS: Clear. No crackles. CARDIAC: S1, S2. No rub. ABDOMEN: Benign. BS+. GENITALIA/RECTUM: [place] absent. BACK/EXTREMITIES: Edema 0+ Ulcer- NEUROLOGICAL: Alert and motor intact. SKIN: Rash- Bruise- LYMPHATICS: Edema- Ulcer- LABORATORY DATA: Show hemoglobin 9.7. ASSESSMENT AND RECOMMENDATIONS: 1. Stage 6 chronic kidney disease. Continue hemodialysis. 2. Hypertension, stable. 3. Anemia, stable. 4. Medications based on glomerular filtration rate are appropriate.
[2017-02-06] MEDS: Folic Acid/Vit B Comp W-C PO SCH (10:24)
[2017-02-06] MEDS: Aspirin 81 mg Enteric Coated Tablet PO SCH (10:25)
[2017-02-06] MEDS: Cinacalcet HCl 30 MG TAB PO SCH (10:26)
[2017-02-06] MEDS: Losartan Potassium 25 MG TAB PO SCH (10:26)
[2017-02-06] MEDS: Sevelamer Carbonate 800 MG TAB PO SCH ×3 (10:27→16:43)
[2017-02-06] MEDS: Saccharomyces boulardii 250 MG CAP PO SCH (10:27)
[2017-02-06] MEDS: Ferrous Sulfate 325 MG TAB PO SCH (10:27)
[2017-02-06] MEDS: Gabapentin 300 MG CAP PO SCH (10:28)
[2017-02-06] MEDS: Carvedilol 25 MG TAB PO SCH (10:29)
[2017-02-06] MEDS: Heparin 5,000 UNITS/ML VIAL SC SCH (10:34)
[2017-02-06] MEDS: HumaLOG 300 UNITS/3 ML VIAL SC PRN ×2 (11:40→16:51)
[2017-02-06 11:48] VITALS: TEMP 97.6
--- NOTE | 2017-02-06 15:46 | PDOC.PN ---
- Subjective Encounter Start Date: 02/06/17 Encounter Start Time: 07:00 Subjective: no abd pain, feels better - Objective Resuscitation Status: Resuscitation Status FULL:Full Resuscitation MAR Reviewed: Yes Vital Signs & Weight: Vital Signs (12 hours) Temp Pulse Resp BP BP Pulse Ox 02/06/17 11:46 97.6 F 67 18 149/73 H 02/06/17 10:29 64 02/06/17 10:25 169/74 H 02/06/17 08:00 97.9 F 64 18 155/76 H 94 L 02/06/17 04:00 98.3 F 61 18 137/62 95 Weight Weight 215 lb 4.8 oz I&O: 02/05/17 02/06/17 02/07/17 06:59 06:59 06:59 Intake Total 660 1450 120 Output Total 3600 Balance 660 -2150 120 Result Diagrams: 02/05/17 08:25 02/05/17 08:25 Additional Labs: Accuchecks 02/06/17 02/06/17 02/05/17 11:02 05:32 19:51 POC Glucose 197 H 146 H 99 02/05/17 16:09 POC Glucose 205 H Phys Exam - Physical Examination HEENT: PERRLA, moist MMs Neck: no JVD, supple Respiratory: no wheezing, no rales Cardiovascular: RRR, no significant murmur Gastrointestinal: soft, non-tender, no distention, positive bowel sounds Musculoskeletal: no edema, pulses present Neurological: non-focal, moves all 4 limbs Psychiatric: A&O x 3 Dx/Plan (1) UTI (urinary tract infection) Status: Acute Qualifiers: Urinary tract infection type: acute cystitis Hematuria presence: without hematuria Qualified Code(s): N30.00 - Acute cystitis without hematuria (2) Sepsis Code(s): A41.9 - SEPSIS, UNSPECIFIED ORGANISM Status: Acute Qualifiers: Sepsis type: Escherichia coli Qualified Code(s): A41.51 - Sepsis due to Escherichia coli [E. coli] (3) ESRD (end stage renal disease) on dialysis Code(s): N18.6 - END STAGE RENAL DISEASE; Z99.2 - DEPENDENCE ON RENAL DIALYSIS Status: Chronic (4) DM type 2 (diabetes mellitus, type 2) Status: Chronic Qualifiers: Diabetes mellitus complication status: with kidney complications Diabetes mellitus complication detail: with chronic kidney disease Diabetes mellitus petroleum terminal plant operator insulin use: without petroleum terminal plant operator use Chronic kidney disease stage: on chronic dialysis Qualified Code(s): E11.22 - Type 2 diabetes mellitus with diabetic chronic kidney disease; N18.6 - End stage renal disease; N18.6 - End stage renal disease; N18.6 - End stage renal disease; N18.6 - End stage renal disease; Z99.2 - Dependence on renal dialysis; Z99.2 - Dependence on renal dialysis; Z99.2 - Dependence on renal dialysis; Z99.2 - Dependence on renal dialysis (5) HTN (hypertension) Code(s): I10 - ESSENTIAL (PRIMARY) HYPERTENSION Status: Chronic Qualifiers: Hypertension type: essential hypertension Qualified Code(s): I10 - Essential (primary) hypertension (6) Abdominal pain, acute, right upper quadrant Code(s): R10.11 - RIGHT UPPER QUADRANT PAIN Status: Resolved - Plan hemostable -: vantin q2days for uti -: dc pt home -: cm for help with dc plan, has not amb in a long time per pt -: PT eval * . Review of Systems - Medications/Allergies Allergies/Adverse Reactions: Allergies Allergy/AdvReac Type Severity Reaction Status Date / Time No Known Allergies Allergy Unverified 02/03/17 02:45 Medications: Current Medications Acetaminophen (Tylenol) 650 mg PO Q4H PRN PRN Reason: Headache/Fever or Pain Al Hydroxide/Mg Hydroxide (Maalox) 30 ml PO Q6H PRN PRN Reason: Heartburn or Indigestion Amlodipine Besylate (Norvasc) 10 mg PO DAILY [facility] Last Admin: 02/06/17 10:29 Dose: 10 mg Aspirin (Ecotrin) 81 mg PO DAILY [facility] Last Admin: 02/06/17 10:25 Dose: 81 mg Atorvastatin Calcium (Lipitor) 20 mg PO HS [facility] Last Admin: 02/05/17 20:24 Dose: 20 mg Carvedilol (Coreg) 25 mg PO BID [facility] Last Admin: 02/06/17 10:29 Dose: 25 mg Cinacalcet (Sensipar) 60 mg PO DAILY [facility] Last Admin: 02/06/17 10:26 Dose: 60 mg Clonidine HCl (Catapres) 0.2 mg PO BID [facility] Last Admin: 02/06/17 10:25 Dose: 0.2 mg Dextrose/Water (Dextrose 50%) 25 gm SLOW IVP PRN PRN PRN Reason: Hypoglycemia Last Admin: 02/03/17 15:05 Dose: 25 gm Ferrous Sulfate (Feosol) 325 mg PO QAM-[facility] Last Admin: 02/06/17 10:27 Dose: 325 mg Gabapentin (Neurontin) 300 mg PO DAILY [facility] Last Admin: 02/06/17 10:28 Dose: 300 mg Glucagon (Glucagon) 1 mg IM PRN PRN PRN Reason: Hypoglycemia Heparin Sodium (Porcine) (Heparin) 5,000 units SC BID [facility] Last Admin: 02/06/17 10:34 Dose: 5,000 units Dextrose/Water (D5w) 1,000 mls @ 0 mls/hr IV .Q0M PRN; As Directed PRN Reason: Hypoglycemia Ceftriaxone Sodium 1 gm/ (Sodium Chloride) 100 mls @ 200 mls/hr IVPB Q24HR [facility] Last Admin: 02/05/17 21:59 Dose: 100 mls Insulin Human Lispro (Humalog) 0 units SC .MODERATE SLIDING SC PRN PRN Reason: Moderate Correctional Scale Last Admin: 02/06/17 11:40 Dose: 2 unit Insulin Human Lispro (Humalog) 0 units SC .BEDTIME SLIDING SC PRN PRN Reason: Bedtime Correctional Scale Isosorbide Mononitrate (Imdur Er) 15 mg PO DAILY [facility] Last Admin: 02/06/17 10:25 Dose: 15 mg Loperamide HCl (Imodium) 2 mg PO PRN PRN PRN Reason: Diarrhea/Loose Stools Losartan Potassium (Cozaar) 50 mg PO BID [facility] Last Admin: 02/06/17 10:26 Dose: 50 mg Magnesium Hydroxide (Milk Of Magnesium) 30 ml PO DAILYPRN PRN PRN Reason: Constipation Morphine Sulfate (Morphine Sulfate) 2 mg SLOW IVP Q4H PRN PRN Reason: Pain Last Admin: 02/04/17 05:46 Dose: 2 mg Ondansetron HCl (Zofran Odt) 4 mg PO Q6H PRN PRN Reason: Nausea/Vomiting Ondansetron HCl (Zofran) 4 mg IVP Q6H PRN PRN Reason: Nausea/Vomiting Saccharomyces Boulardii (Florastor) 250 mg PO DAILY [facility] Last Admin: 02/06/17 10:27 Dose: 250 mg Senna (Senokot) 2 tab PO HSPRN PRN PRN Reason: Constipation Last Admin: 02/05/17 21:56 Dose: 2 tab Sevelamer Carbonate (Renvela) 800 mg PO TID-[facility] Last Admin: 02/06/17 13:55 Dose: 800 mg Sodium Chloride (Flush - Normal Saline) 10 ml IVF PRN PRN PRN Reason: Saline Flush Last Admin: 02/03/17 09:52 Dose: 10 ml Vitamin B Complex/Vit C/Folic Acid (Nephro-Jenny Tablet) 1 tab PO DAILY [facility] Last Admin: 02/06/17 10:24 Dose: 1 tab Zolpidem Tartrate (Ambien) 5 mg PO HSPRN PRN PRN Reason: Insomnia
[2017-02-06 17:51] VITALS: BP 146/74
--- NOTE | 2017-02-06 21:34 | DIS ---
DATE OF ADMISSION: 02/02/2017 DATE OF DISCHARGE: 02/06/2017 DISCHARGE DISPOSITION: To home. PRIMARY DISCHARGE DIAGNOSES: Sepsis, urinary tract infection, right upper quadrant pain, resolved. SECONDARY DISCHARGE DIAGNOSES: End-stage renal disease on hemodialysis, diabetes mellitus type 2, h ypertension. PROCEDURES DONE DURING HOSPITALIZATION: Echo with 2D Doppler done showed an EF of 50%-55%, severe t ricuspid regurgitation. Abdominal ultrasound done showed normal gallbladder with no stones or sludg e. There was no biliary dilatation. Chest x-ray done showed pulmonary vascular congestion with car diomegaly. Urine culture grew E. coli sensitive to cephalosporins and Macrobid. Had a BNP of 1220. Troponin I was 0.04, BUN 42, creatinine 6.0 on the day of admission. BUN and creatinine done on was 19 and 3.0. DISCHARGE MEDICATIONS: Vantin 200 mg every 2 days for a total of 4 tablets, Coreg 25 mg p.o. twice daily, atorvastatin 20 mg p.o. at bedtime, aspirin 81 mg p.o. daily, Sensipar 60 mg p.o. daily, ferr ous sulfate 325 mg p.o. daily, gabapentin 300 mg p.o. daily, glimepiride 4 mg p.o. daily, Imdur exte nded release 15 mg p.o. daily, losartan 50 mg twice daily, Renvela 800 mg p.o. 3 times daily, Norvas c 10 mg p.o. daily, clonidine 0.2 mg p.o. twice daily. ALLERGIES: No known drug allergies. DISCHARGE PLAN: Patient to follow up with Dr. Ware, her residential monitor as advised and primary care ph ysician in 1 week. She needs to continue her dialysis on Friday, Friday, and Friday. BRIEF COURSE DURING HOSPITALIZATION: The patient initially got admitted for generalized weakness. She was found to have urinary tract infection. Also, the patient had shortness of breath and increa sing lower extremity edema. Her chest x-ray revealed pulmonary vascular congestion. Patient has allen d back to back dialysis done along with nunez cultures. She was placed on IV antibiotics and has been transitioned to Vantin based on sensitivity patterns. She is chronically deconditioned and barely ambulates with a rolling walker and takes a few steps. Case management consultation was requested, but family and patient has refused placement. The plan is to send her home with her son with home h ealth and PT. She is hemodynamically stable and will be shortly discharged home. Please see a face -to-face documentation on [facility] for the day of discharge.
== END 2017-02-06 18:20 | disposition home health service (06) | DRG 871 ==
LOC: ERS 18:57 → 2NO 23:30 → T4-B 02-04 15:38
PROVIDERS: ADMIT Internal Medicine; ATTEND Internal Medicine
PROC: 5A1D70Z Performance of Urinary Filtration, Intermittent, Less than 6 Hours Per Day (ICD-10-PCS; principal; 2017-02-03)
DX: A41.51 Sepsis due to Escherichia coli [E. coli] (principal); N18.6 End stage renal disease; I12.0 Hypertensive chronic kidney disease with stage 5 chronic kidney disease or end stage renal disease; I24.8 Other forms of acute ischemic heart disease; E11.22 Type 2 diabetes mellitus with diabetic chronic kidney disease; N25.81 Secondary hyperparathyroidism of renal origin; N10 Acute pyelonephritis; N30.00 Acute cystitis without hematuria; Z99.2 Dependence on renal dialysis; E78.5 Hyperlipidemia, unspecified; Z99.3 Dependence on wheelchair; M19.012 Primary osteoarthritis, left shoulder; D63.1 Anemia in chronic kidney disease; E11.42 Type 2 diabetes mellitus with diabetic polyneuropathy; Z88.5 Allergy status to narcotic agent; Z88.8 Allergy status to other drugs, medicaments and biological substances; Z91.040 Latex allergy status; I07.1 Rheumatic tricuspid insufficiency; B96.20 Unspecified Escherichia coli [E. coli] as the cause of diseases classified elsewhere
CPT/HCPCS: 36415; 36416; 36901; 51701; 71010; 76705; 80048; 80053; 81003; 81015; 82553; 82805; 83605; 83690; 83880; 84484; 85014; 85018; 85025; 87040; 87077; 87086; 87186; 90935; 93005; 93306; 94760; 96361; 96365; A4353; C1769; G0257; G8978-GP-CM; G8979-GP-CK; G8987-GO-CK; G8988-GO-CH; J0696; J1644; J1956; J2270; J7050

== ENCOUNTER 2017-02-25 22:14 | Emergency (ER) | payer MEDICARE, MEDICAID ==
--- OUTSIDE RECORDS SUMMARY | 2017-02-25 22:17 | XMS | Clinical Summary ---
:1950 Author Organization [facility] Address [address] [place] [address] Phone Care Team Providers Name Role Phone [...] hyperglycemia, without long-term current use of insulin ([facility]) Obesity (BMI 30-39.9) 06/10/2016 Overview: Body mass index is 31.26 kg/(m^2). on 06/11/2016 Neuropathy (HCC) 06/04/2016 Angiopathy, peripheral ([facility]) 06/04/2016 Diastolic CHF, acute on chronic ([facility]) 09/09/2014 Physical deconditioning 06/17/2014 Lower urinary tract [...] systolic and diastolic heart 06/10/2016 09/13/2016 failure ([facility]) ESRD (end stage renal disease) ([facility]) 06/10/2016 09/13/2016 Hypoxia 06/14/2015 09/13/2016 Hyperkalemia 06/13/2015 09/13/2016 SOB (shortness of breath) 06/13/2015 09/13/2016 Decubitus ulcer of right heel 05/03/2015 09/13/2016 Hypoxic encephalopathy ([facility]) 03/31/2015 09/13/2016 Respiratory failure with hypoxia ([facility]) 03/30/2015 09/13/2016 hypoxic encephalopathy, moderate 03/30/2015 03/31/2015 Bacteremia 03/25/2015 09/13/2016 Wound infection 03/25/2015 09/13/2016 Pulmonary edema 03/23/2015 09/13/2016 Respiratory distress 03/23/2015 06/14/2015 Chronic kidney disease (CKD) 03/23/2015 09/13/2016 CHF (congestive heart failure), NYHA class III, acute on 03/23/20152014 chronic, combined ([facility]) Accelerated hypertension 09/09/2014 09/13/2016 Sacral decubitus ulcer 09/09/2014 09/13/2016 Metabolic encephalopathy 06/16/2014 09/13/2016 Altered mental status 06/12/2014 09/13/2016 Hypoglycemia 06/12/2014 09/13/2016 Hypomagnesemia 06/04/2014 09/13/2016 Left ear hearing loss 06/03/2014 09/13/2016 Pulmonary HTN ([facility]) 05/30/2014 09/13/2016 CHF (congestive heart failure) ([facility]) 05/25/2014 05/25/2014 Acute on chronic systolic heart failure ([facility]) 05/25/2014 06/16/2014 Decubitus ulcer of sacral region, stage 2 05/25/2014 09/13/2016 Delirium 02/12/2014 05/25/2014 Dysphagia 02/11/2014 05/25/2014 CKD (chronic kidney disease) stage 3, GFR 30-59 ml/min 02/03/2014 05/25/2014 Respiratory failure ([facility]) 01/27/2014 05/25/2014 Pulmonary edema with congestive heart failure with reduced 01/26/20142014 LV function ([facility]) CAD (coronary artery disease) 01/21/2014 09/13/2016 Renal failure 01/21/2014 02/01/2014 Anemia 01/21/2014 09/13/2016 Hypokalemia 01/21/2014 02/01/2014 Acute on chronic systolic CHF (congestive heart failure), 01/14/20142014 NYHA class 3 ([facility]) Respiratory distress 01/14/2014 05/25/2014 Acute on chronic renal failure ([facility]) 01/14/2014 09/13/2016 Leucocytosis 01/14/2014 02/01/2014 DM (diabetes mellitus) ([facility]) 01/14/2014 05/25/2014 Hypertensive emergency 01/14/2014 02/01/2014 Kidney insufficiency 07/18/2013 05/25/2014 Dyspnea 07/14/2013 05/25/2014 SOB (shortness of breath) 07/13/2013 05/25/2014 Hypertension, uncontrolled 07/13/2013 05/25/2014 Diabetes ([facility]) 07/13/2013 05/25/2014 Diabetes mellitus ([facility]) 09/13/2016 Hypertension 09/13/2016 CHF (congestive heart failure) ([facility]) 09/13/2016 Hypertension 09/13/2016 Diabetes mellitus ([facility]) 09/13/2016 Pulmonary edema 09/13/2016 Combined systolic and diastolic cardiac dysfunction 09/13/2016 Combined systolic and diastolic cardiac dysfunction 09/13/2016 Encounters Date Type Specialty Care Team Description 12/09/2016 - Emergency General Internal Gallo Gilbert Abdominal pain, 12/10/2016 Medicine MD Doug epigastric (Primary Kelly Arzate Dx);Non-intractable MD Tammy vomiting with nausea, Colton Andrea MD unspecified vomiting type;Elevated troponin;End stage renal disease ([facility]);Normochromic normocytic anemia;Obesity (BMI 30-39.9) 12/09/2016 Orders Only [...] Color, UA Yellow Clarity, UA Hazy Specific [place], UA 1.011 1.001 - 1.035 pH, UA [...] Performing Laboratory Urine - Urine, Straight Catheter [address] [address] Urine culture (12/10/2016 12:27 PM) Component Value Ref Range Result >100,000 col/mL Escherichia coli(A) Specimen Performing Laboratory Urine - Urine, Straight Catheter [address] [address] Organism Antibiotic Method Susceptibility Escherichia coli Amikacin [...] Value Ref Range POC-Glucose Meter 273(H)Comment:TESTED AT [address] 70 - 110 mg/[place] [address] Specimen Performing Laboratory Blood [address] [address] CBC with platelet count + automated diff [...] - 1 % Specimen Performing Laboratory Blood [address] [address] Troponin I (12/10/2016 5:07 AM)Only the most recent of3 resultswithin the time period is included. Component Value Ref Range Troponin I 0.05(H) 0.00 - 0.03 ng/mL Specimen Performing Laboratory Blood [address] [address] Narrative Effective 03/15/2014: Reference Range Change New: [...] Status --------- ------ CBC with platelet count ...[[id number]]AbnormalFinal result Please view results for these tests on the individual orders. Hemoglobin A1c (12/10/2016 5:07 AM) Component Value Ref Range Hemoglobin A1C 10.3(H) 4.3 - 6.1 % Specimen Performing Laboratory Blood [address] [address] Creatine Kinase (CK), Total and MB (12/10/2016 5:07 AM)Only the most recent of3 resultswithin the time period is included. Component Value Ref Range Total CK 46 29 - 200 U/L CK-MB 1.0 0.0 - 6.6 ng/mL MB Relative Index 2.2 % Specimen Performing Laboratory Blood [address] [address] Narrative Effective 03/15/2014: CK-MB Reference Range Change [...] DIALYSIS PATIENTS. Specimen Performing Laboratory [place] [address] CT abdomen/pelvis without iv contrast (12/09/2016 6:46 PM) Specimen Performing Laboratory [facility] Narrative FINAL REPORT HISTORY : Abdominal pain, [...] colon, underdistention versus nonspecific colitis. 3. Atrophic [place] kidneys. There is an indeterminate cystic/hypodense lesion in the left renal upper pole. Correlation with an ultrasound or CT, renal mass protocol, is advised. 4. Cardiomegaly. 5. Atherosclerotic vascular disease. 6. Nonspecific air within the bladder. There is some mild nonspecific bladder wall thickening. Signed: Santiago Ahn MD Report Verified Date/Time:12/09/2016 18:54:11 Reading Location: [facility] C013Y CT Body Reading Room Procedure Note [...] colon, underdistention versus nonspecific colitis. 3. Atrophic [place] kidneys. There is an indeterminate cystic/hypodense lesion in the left renal upper pole. Correlation with an ultrasound or CT, renal mass protocol, is advised. 4. Cardiomegaly. 5. Atherosclerotic vascular disease. 6. Nonspecific air within the bladder. There is some mild nonspecific bladder wall thickening. Signed: Santiago Ahn MD Report Verified Date/Time: 12/09/2016 18:54:11 Reading Location: [facility] B1 C013Y CT Body Reading Room 12 lead (12/09/2016 4:11 PM) Specimen Performing Laboratory [facility] Narrative Ventricular Rate 82 BPM Atrial Rate 82 BPM P-R Interval 268 ms QRS Duration 120 ms Q-T Interval 436 ms QTC Calculation(Bazett) 509 ms P [place] 85 degrees R [place] -5 degrees T [place] 131 degrees Sinus rhythm with 1st degree [...] 436 ms QTC Calculation(Bazett) 509 ms P [place] 85 degrees R [place] -5 degrees T [place] 131 degrees Sinus rhythm with 1st degree [...] U/L Specimen Performing Laboratory Blood - Arm, [place] [address] Hepatic function panel (12/09/2016 3:38 PM) Component Value Ref Range Protein, Total 8.0 6.0 - 8.3 gm/dL Albumin 3.9 3.5 - 5.0 g/dL Total Bilirubin 0.5 0.2 - 1.2 mg/dL Bilirubin, Direct 0.2 0.1 - 0.5 mg/dL Alkaline Phosphatase 111 40 - 150 U/L AST 16 5 - 34 U/L ALT 8 6 - 55 U/L Specimen Performing Laboratory Blood - Arm, [address] [address] from Last 3 Months
[2017-02-25] MEDS ORDERED: traMADol HCl 50 MG TAB ONE (23:18)
--- NOTE | 2017-02-25 23:31 | RAD ---
TWO VIEWS OF THE LEFT HIP: 02/25/17 INDICATION: Pain status post fall. COMPARISON: None. FINDINGS: No acute fracture or subluxation is present. There is mild degenerative arthrosis left hip. There ar e prominent vascular calcifications within the adjacent soft tissues. IMPRESSION: No acute osseous abnormality. POS: [facility]
--- NOTE | 2017-02-25 23:34 | RAD ---
AP VIEW OF THE PELVIS 02/25/17 INDICATION: Pelvic pain. COMPARISON: None. FINDINGS: No acute fracture is evident. There is diffuse osteopenia. There is severe vascular calcifications i nvolving the pelvis. There is injection granulomata overlying the right gluteal region. IMPRESSION: No acute osseous abnormality. POS: [facility]
--- NOTE | 2017-02-25 23:52 | RAD ---
TWO VIEWS OF THE RIGHT HIP: 02/25/17 INDICATION: Right hip pain. COMPARISON: None. FINDINGS: No acute fracture or subluxation is evident. There is mild degenerative arthrosis of the right hip. There is diffuse osteopenia. There is prominent amount of retained stool within the rectum. There ar e prominent vascular calcifications involving the pelvis. IMPRESSION: No acute osseous abnormality. POS: [facility]
== END 2017-02-25 23:55 | disposition home or self-care (01) ==
LOC: ERS 22:14
DX: S76.012A Strain of muscle, fascia and tendon of left hip, initial encounter (principal); S76.011A Strain of muscle, fascia and tendon of right hip, initial encounter; E11.9 Type 2 diabetes mellitus without complications; I10 Essential (primary) hypertension; Z79.899 Other long term (current) drug therapy; Z79.82 Long term (current) use of aspirin; W05.0XXA Fall from non-moving wheelchair, initial encounter
CPT/HCPCS: 72170; 99284

== ENCOUNTER 2017-03-10 20:17 | Emergency (ER) | payer MEDICARE, MEDICAID ==
--- OUTSIDE RECORDS SUMMARY | 2017-03-10 20:20 | XMS | Clinical Summary ---
:1950 Author Organization [facility] Address [address] [place] [address] Phone Care Team Providers Name Role Phone [...] hyperglycemia, without long-term current use of insulin ([facility]) Obesity (BMI 30-39.9) 06/10/2016 Overview: Body mass index is 31.26 kg/(m^2). on 06/11/2016 Neuropathy (HCC) 06/04/2016 Angiopathy, peripheral ([facility]) 06/04/2016 Diastolic CHF, acute on chronic ([facility]) 09/09/2014 Physical deconditioning 06/17/2014 Lower urinary [...] systolic and diastolic heart 06/10/2016 09/13/2016 failure ([facility]) ESRD (end stage renal disease) ([facility]) 06/10/2016 09/13/2016 Hypoxia 06/14/2015 09/13/2016 Hyperkalemia 06/13/2015 09/13/2016 SOB (shortness of breath) 06/13/2015 09/13/2016 Decubitus ulcer of right heel 05/03/2015 09/13/2016 Hypoxic encephalopathy ([facility]) 03/31/2015 09/13/2016 Respiratory failure with hypoxia ([facility]) 03/30/2015 09/13/2016 hypoxic encephalopathy, moderate 03/30/2015 03/31/2015 Bacteremia 03/25/2015 09/13/2016 Wound infection 03/25/2015 09/13/2016 Pulmonary edema 03/23/2015 09/13/2016 Respiratory distress 03/23/2015 06/14/2015 Chronic kidney disease (CKD) 03/23/2015 09/13/2016 CHF (congestive heart failure), NYHA class III, acute on 03/23/20152014 chronic, combined ([facility]) Accelerated hypertension 09/09/2014 09/13/2016 Sacral decubitus ulcer 09/09/2014 09/13/2016 Metabolic encephalopathy 06/16/2014 09/13/2016 Altered mental status 06/12/2014 09/13/2016 Hypoglycemia 06/12/2014 09/13/2016 Hypomagnesemia 06/04/2014 09/13/2016 Left ear hearing loss 06/03/2014 09/13/2016 Pulmonary HTN ([facility]) 05/30/2014 09/13/2016 CHF (congestive heart failure) ([facility]) 05/25/2014 05/25/2014 Acute on chronic systolic heart failure ([facility]) 05/25/2014 06/16/2014 Decubitus ulcer of sacral region, stage 2 05/25/2014 09/13/2016 Delirium 02/12/2014 05/25/2014 Dysphagia 02/11/2014 05/25/2014 CKD (chronic kidney disease) stage 3, GFR 30-59 ml/min 02/03/2014 05/25/2014 Respiratory failure ([facility]) 01/27/2014 05/25/2014 Pulmonary edema with congestive heart failure with reduced 01/26/20142014 LV function ([facility]) CAD (coronary artery disease) 01/21/2014 09/13/2016 Renal failure 01/21/2014 02/01/2014 Anemia 01/21/2014 09/13/2016 Hypokalemia 01/21/2014 02/01/2014 Acute on chronic systolic CHF (congestive heart failure), 01/14/20142014 NYHA class 3 ([facility]) Respiratory distress 01/14/2014 05/25/2014 Acute on chronic renal failure ([facility]) 01/14/2014 09/13/2016 Leucocytosis 01/14/2014 02/01/2014 DM (diabetes mellitus) ([facility]) 01/14/2014 05/25/2014 Hypertensive emergency 01/14/2014 02/01/2014 Kidney insufficiency 07/18/2013 05/25/2014 Dyspnea 07/14/2013 05/25/2014 SOB (shortness of breath) 07/13/2013 05/25/2014 Hypertension, uncontrolled 07/13/2013 05/25/2014 Diabetes ([facility]) 07/13/2013 05/25/2014 Diabetes mellitus ([facility]) 09/13/2016 Hypertension 09/13/2016 CHF (congestive heart failure) ([facility]) 09/13/2016 Hypertension 09/13/2016 Diabetes mellitus ([facility]) 09/13/2016 Pulmonary edema 09/13/2016 Combined systolic and diastolic cardiac dysfunction 09/13/2016 Combined systolic and diastolic cardiac dysfunction 09/13/2016 Encounters Date Type Specialty Care Team Description 12/09/2016 - Emergency General Internal Gallo Gilbert Abdominal pain, 12/10/2016 Medicine MD Doug epigastric (Primary Kelly Arzate Dx);Non-intractable MD Tammy vomiting with nausea, Colton Andrea MD unspecified vomiting type;Elevated troponin;End stage renal disease ([facility]);Normochromic normocytic anemia;Obesity (BMI 30-39.9) 12/09/2016 Orders [...] Color, UA Yellow Clarity, UA Hazy Specific [employer], UA 1.011 1.001 - 1.035 pH, UA [...] Performing Laboratory Urine - Urine, Straight Catheter [address] [address] Urine culture (12/10/2016 12:27 PM) Component Value Ref Range Result >100,000 col/mL Escherichia coli(A) Specimen Performing Laboratory Urine - Urine, Straight Catheter [address] [address] Organism Antibiotic Method Susceptibility Escherichia coli Amikacin [...] Value Ref Range POC-Glucose Meter 273(H)Comment:TESTED AT [address] 70 - 110 mg/[place] [address] Specimen Performing Laboratory Blood [address] [address] CBC with platelet count + automated diff [...] - 1 % Specimen Performing Laboratory Blood [address] [address] Troponin I (12/10/2016 5:07 AM)Only the most recent of3 resultswithin the time period is included. Component Value Ref Range Troponin I 0.05(H) 0.00 - 0.03 ng/mL Specimen Performing Laboratory Blood [address] [address] Narrative Effective 03/15/2014: Reference Range Change New: [...] Status --------- ------ CBC with platelet count ...[[id number]]AbnormalFinal result Please view results for these tests on the individual orders. Hemoglobin A1c (12/10/2016 5:07 AM) Component Value Ref Range Hemoglobin A1C 10.3(H) 4.3 - 6.1 % Specimen Performing Laboratory Blood [address] [address] Creatine Kinase (CK), Total and MB (12/10/2016 5:07 AM)Only the most recent of3 resultswithin the time period is included. Component Value Ref Range Total CK 46 29 - 200 U/L CK-MB 1.0 0.0 - 6.6 ng/mL MB Relative Index 2.2 % Specimen Performing Laboratory Blood [address] [address] Narrative Effective 03/15/2014: CK-MB Reference Range Change [...] DIALYSIS PATIENTS. Specimen Performing Laboratory [place] [address] CT abdomen/pelvis without iv contrast (12/09/2016 6:46 PM) Specimen Performing Laboratory [employer] Narrative FINAL REPORT HISTORY : Abdominal pain, [...] colon, underdistention versus nonspecific colitis. 3. Atrophic [place] kidneys. There is an indeterminate cystic/hypodense lesion in the left renal upper pole. Correlation with an ultrasound or CT, renal mass protocol, is advised. 4. Cardiomegaly. 5. Atherosclerotic vascular disease. 6. Nonspecific air within the bladder. There is some mild nonspecific bladder wall thickening. Signed: Santiago Ahn MD Report Verified Date/Time:12/09/2016 18:54:11 Reading Location: [facility] C013Y CT Body Reading Room Procedure Note [...] colon, underdistention versus nonspecific colitis. 3. Atrophic [place] kidneys. There is an indeterminate cystic/hypodense lesion in the left renal upper pole. Correlation with an ultrasound or CT, renal mass protocol, is advised. 4. Cardiomegaly. 5. Atherosclerotic vascular disease. 6. Nonspecific air within the bladder. There is some mild nonspecific bladder wall thickening. Signed: Santiago Ahn MD Report Verified Date/Time: 12/09/2016 18:54:11 Reading Location: [facility] B1 C013Y CT Body Reading Room 12 lead (12/09/2016 4:11 PM) Specimen Performing Laboratory [employer] Narrative Ventricular Rate 82 BPM Atrial Rate 82 BPM P-R Interval 268 ms QRS Duration 120 ms Q-T Interval 436 ms QTC Calculation(Bazett) 509 ms P [place] 85 degrees R [place] -5 degrees T [place] 131 degrees Sinus rhythm with 1st degree [...] 436 ms QTC Calculation(Bazett) 509 ms P [place] 85 degrees R [place] -5 degrees T [place] 131 degrees Sinus rhythm with 1st degree [...] U/L Specimen Performing Laboratory Blood - Arm, [place] [address] Hepatic function panel (12/09/2016 3:38 PM) Component Value Ref Range Protein, Total 8.0 6.0 - 8.3 gm/dL Albumin 3.9 3.5 - 5.0 g/dL Total Bilirubin 0.5 0.2 - 1.2 mg/dL Bilirubin, Direct 0.2 0.1 - 0.5 mg/dL Alkaline Phosphatase 111 40 - 150 U/L AST 16 5 - 34 U/L ALT 8 6 - 55 U/L Specimen Performing Laboratory Blood - Arm, [address] [address] from Last 3 Months
[2017-03-10 20:54] LABS: #Eosinphils 0.1 thou/uL (0.0-0.7); #Lymphocytes 1.1 thou/uL (1.20-3.40); #Monocytes 0.4 thou/uL (0.11-0.59); #Neutrophils 3.5 thou/uL (1.40-6.50); %Basophils 0.7 % (0.0-1.0); %Eosinophils 1.9 % (0.0-10.0); %Lymphocytes 20.8 % (21.0-51.0); %Monocytes 8.3 % (0.0-10.0); Mean Platelet Volume 8.9 fL (7.4-10.4); Red Blood Cell (RBC) Count 4.13 mill/uL (4.20-5.40); White Blood Cell (WBC) Count 5.1 thou/uL (4.8-10.8)
[2017-03-10 21:13] LABS: ALT (SGPT) 7 U/L (8-55); AST (SGOT) 24 U/L (5-34); Alkaline Phosphatase 87 U/L (40-150); Anion Gap 19 mmol/L (10-20); BUN (Urea Nitrogen) 20 mg/dL (9.8-20.1); Bilirubin, Total 0.4 mg/dL (0.2-1.2); Calc. Creatinine Clearance 0 mL/min (70-130); Calcium 9.5 mg/dL (7.8-10.44); Carbon Dioxide 33 mmol/L (23-31); Chloride 91 mmol/L (98-107); Estimated GFR-MDRD 14; Protein, Total 8.9 g/dL (6.0-8.3)
[2017-03-10 21:14] LABS: CK (CPK) 57 U/L (29-168); Lipase 29 U/L (8-78)
[2017-03-10 21:18] LABS: Troponin I 0.037 ng/mL (< 0.028)
--- NOTE | 2017-03-10 22:45 | CT ---
CT HEAD NONCONTRAST: History: Headache. FINDINGS: No comparison. There is no evidence of acute intracranial hemorrhage or infarct. Diffuse cortical atrophy is appare nt. 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 There is no mass effect or shift of midline structures. IMPRESSION: Chronic type findings. No acute intracranial abnormalities are demonstrated on noncontrast CT head. POS: [facility]
== END 2017-03-10 23:47 | disposition home or self-care (01) ==
LOC: ERS 20:17
DX: I12.9 Hypertensive chronic kidney disease with stage 1 through stage 4 chronic kidney disease, or unspecified chronic kidney disease (principal); E11.22 Type 2 diabetes mellitus with diabetic chronic kidney disease; N18.9 Chronic kidney disease, unspecified; M19.90 Unspecified osteoarthritis, unspecified site; Z99.2 Dependence on renal dialysis; Z79.82 Long term (current) use of aspirin; Z79.84 Long term (current) use of oral hypoglycemic drugs; Z79.899 Other long term (current) drug therapy
CPT/HCPCS: 70450; 80053; 82553; 83690; 84484; 85025

== ENCOUNTER 2017-04-07 08:02 | Inpatient (IN) | payer MEDICARE, MEDICAID ==
[2017-04-07] MEDS ORDERED: Nitroglycerin 2% Ointment 1 INCH/1 GM Packet ONE (08:12)
[2017-04-07] MEDS ORDERED: Furosemide 40 MG/4 ML VIAL ONE (08:12)
[2017-04-07] MEDS ORDERED: Nitroglycerin 0.4 MG TAB (25 Tab Bottle) ONE (08:12)
[2017-04-07 08:32] LABS: Mode 2L NC; Modified Allen's Test POSITIVE; Oxyhemoglobin 91.1 % (94.0-97.0); Sodium 139 mmol/L (135-148); Vent NO
[2017-04-07] MEDS ORDERED: Lorazepam 2 MG/ML VIAL ONE (08:35)
[2017-04-07 08:38] LABS: #Eosinphils 0.1 thou/uL (0.0-0.7); #Lymphocytes 1.9 thou/uL (1.20-3.40); #Monocytes 0.6 thou/uL (0.11-0.59); #Neutrophils 8.6 thou/uL (1.40-6.50); %Basophils 0.4 % (0.0-1.0); %Eosinophils 1.1 % (0.0-10.0); %Lymphocytes 16.5 % (21.0-51.0); %Monocytes 5.3 % (0.0-10.0); Hematocrit 34.3 % (36.0-47.0); Mean Platelet Volume 9.5 fL (7.4-10.4); Red Blood Cell (RBC) Count 3.85 mill/uL (4.20-5.40); White Blood Cell (WBC) Count 11.2 thou/uL (4.8-10.8)
[2017-04-07] MEDS ORDERED: hydrALAZINE 20 MG/ML VIAL ONE (08:55)
[2017-04-07 09:01] LABS: ALT (SGPT) 8 U/L (8-55); AST (SGOT) 19 U/L (5-34); Alkaline Phosphatase 66 U/L (40-150); Anion Gap 16 mmol/L (10-20); BUN (Urea Nitrogen) 49 mg/dL (9.8-20.1); Bilirubin, Total 0.5 mg/dL (0.2-1.2); Calc. Creatinine Clearance 0 mL/min (70-130); Calcium 10.2 mg/dL (7.8-10.44); Carbon Dioxide 28 mmol/L (23-31); Chloride 98 mmol/L (98-107); Estimated GFR-MDRD 8; Globulin 4.9 g/dL (2.4-3.5); Protein, Total 9.1 g/dL (6.0-8.3)
[2017-04-07 09:05] LABS: Troponin I 0.063 ng/mL (< 0.028)
--- NOTE | 2017-04-07 09:35 | RAD ---
PORTABLE UPRIGHT FRONTAL CHEST RADIOGRAPH: DATE: 04/07/17. COMPARISON: 02/02/17. HISTORY: Short of breath. FINDINGS: Cardiac silhouette is enlarged. There is pulmonary vascular prominence with perihilar and bibasilar interstitial opacity, similar when compared to prior examination. Probable right basilar and perihil ar and airspace disease noted as well. No pneumothorax seen. IMPRESSION: Interstitial opacity and airspace disease with pulmonary vascular congestion suggests pulmonary edema . Infection or aspiration cannot be excluded. Recommend followup imaging following treatment. POS: [facility]
[2017-04-07] MEDS ORDERED: Guaifenesin DM 100-10/5 ML UDCUP PO PRN (13:53)
[2017-04-07 15:14] LABS: Troponin I 0.066 ng/mL (< 0.028)
[2017-04-07] MEDS: Carvedilol 6.25 MG TAB PO SCH (20:02)
[2017-04-07] MEDS: Sevelamer Carbonate 800 MG TAB PO SCH (20:02)
--- NOTE | 2017-04-07 21:01 | HP ---
REASON FOR ADMISSION: Volume overload, hypertensive urgency, acute respiratory failure with hypoxia on arrival with saturations of 90% on BiPAP on arrival. HISTORY OF PRESENT ILLNESS: The patient was brought to emergency room for complaints of shortness of breath from environmental service aide. She had only 2 hours of hemodialysis on Friday. The patient was in a tripod position with saturating in the 70% range on room air and 90% on BiPAP on arrival. She had no fever, but has cough with clear phlegm. No complaints of chest pain. The patient is very lethargic and is a poor historian. She is awaiting emergent dialysis now. PAST MEDICAL AND SURGICAL HISTORY: History of end-stage renal disease on hemodialysis on Friday, Friday, and Fridays; diabetes mellitus type 2, hypertension, history of CHF with diastolic dysfunction, left upper extremity dialysis access procedures, prior tracheostomy scar in the neck, poor functional status with patient not ambulating from last 8 years or so per patient, dyslipidemia, chronic anemia due to renal disease, osteoarthritis. PERSONAL HISTORY: Does not abuse alcohol or drugs. No history of smoking. She lives with her son. FAMILY HISTORY: Multiple family members have high blood pressure and diabetes per patient. CURRENT MEDICATIONS: Please note, the patient cannot recall any of her medications. Per her prior records, patient is on Norvasc 10 mg daily, aspirin 81 mg daily, atorvastatin 20 mg at bedtime, Coreg 25 mg twice daily, Sensipar 60 mg p.o. daily, clonidine 0.2 mg twice daily, ferrous sulfate 325 mg daily, gabapentin 300 mg daily, glimepiride 4 mg p.o. q.a.m., isosorbide mononitrate 15 mg p.o. daily, losartan 50 mg twice daily, sevelamer 800 mg p.o. three times daily before meals. ALLERGIES: No known drug allergies. REVIEW OF SYSTEMS: Cannot be accurately obtained as patient is very lethargic and is a very poor historian. She, kind of falls asleep immediately after answering 1 or 2 questions. PHYSICAL EXAMINATION: GENERAL: The patient is a 66-year-old female who is currently in moderate distress. VITAL SIGNS: Blood pressure on arrival 200/126, pulse 106 per minute, respiratory rate 30 per minute, temperature 98.2 degrees Fahrenheit, saturating 99% on 2 liters nasal cannula and she has been weaned off BiPAP at present. Initially she was 70% on room air and 90% on BiPAP. NECK: Supple. There is elevated JVD. HEENT: Eyes, extraocular muscles intact. Pupils reacting to light. Oral cavity mucous membranes are moist. No exudates or congestion. CARDIOVASCULAR: S1, S2 heard, S3 plus. RESPIRATORY: Air entry 1+ bilateral. Scattered rales plus in the infrascapular area. ABDOMEN: Soft, bowel sounds heard. No tenderness, rigidity or guarding. EXTREMITIES: There is mild peripheral edema, no calf tenderness. VASCULAR: Peripheral pulses 1+ bilateral. No ischemic ulcerations or gangrene. CENTRAL NERVOUS SYSTEM: No gross focal deficits seen. Patient is very lethargic and responds to verbal questions on repeated stimuli. PSYCHIATRIC: Cannot be accurately assessed as patient has moderate respiratory distress at present, no obvious hallucinations or delusions. LABORATORY AND X-RAY FINDINGS: EKG done shows sinus tachycardia at 109 beats per minute. There are signs of LVH with QRS duration of 124 milliseconds. White count 11, H&H 11 and 34, platelet count 156, MCV is 89 with 76% neutrophils. Blood gas on arrival shows a pH of 7.40, pCO2 of 48, pO2 of 69, potassium is 5.3, BUN 49, creatinine 6.0. Serum bicarbonate 28. Cardiac enzymes, troponin I is 0.06, CK-MB 0.8. BNP is 714, albumin is 4.2. Chest x- ray done shows pulmonary vascular congestion with cardiomegaly. CLINICAL IMPRESSION AND PLAN: The patient will be admitted to telemetry for volume overload with acute respiratory failure with hypoxia on arrival and hypertensive urgency. She will be emergently dialyzed now. I have discussed her findings with Dr. Hendricks, her intermediate card tender. We will continue her aspirin, Norvasc, atorvastatin, Sensipar, clonidine, ferrous sulfate, gabapentin, glimepiride, isosorbide mononitrate and sevelamer as before. Her Coreg will be reduced to 12.5 mg p.o. twice daily due to current respiratory distress. We will try to obtain a repeat EKG after her dialysis to see if there are early repolarization signs and QRS duration. She has had a prior echo done in 2016 which showed EF of 50-55%. There was severe tricuspid regurgitation on the echo done. We will continue to closely monitor her on telemetry. [facility]
[2017-04-07] MEDS: Atorvastatin Calcium 20 MG TAB PO SCH (22:16)
[2017-04-07] MEDS: Docusate 100 MG CAP PO SCH (22:16)
[2017-04-07] MEDS: cloNIDine 0.2 MG TAB PO SCH (22:17)
[2017-04-07] MEDS: Heparin 5,000 UNITS/ML VIAL SC SCH (22:17)
[2017-04-07] MEDS: Acetaminophen 325 MG TAB PO PRN (22:18)
[2017-04-07 23:14] VITALS: BMI 33.7
--- NOTE | 2017-04-08 06:44 | CON ---
DATE OF CONSULTATION: 04/07/2017 CONSULTING PHYSICIAN: Dr. Dasilva. REASON FOR CONSULTATION: End-stage renal disease evaluation and care. REASON FOR ADMISSION: Shortness of breath. HISTORY OF PRESENT ILLNESS: This is a 66-year-old -Serbian female with history of end-stage renal disease, hypertension, arthritis, type 2 diabetes who came to the hospital with shortness of br eath. Patient had only 2 hours of dialysis on Friday and came today to the emergency room with short ness of breath and was refusing BiPAP when I saw her, she was seen in the ER. No fever or chills, no cough, no sick contacts, no skin rash. No chest pain reported. PAST MEDICAL HISTORY: Positive for end-stage renal disease, type 2 diabetes, hypertension, CHF. PAST SURGICAL HISTORY: Left arm surgery, dialysis shunt placement and tracheostomy. HOME MEDICATIONS: Include gabapentin, Renvela, docusate, , amlodipine, isosorbide mononitrate, carvedilol, aspirin, losartan, glimepiride, ferrous sulfate, atorvastatin, Sensipar, clonidine. ALLERGIES: No known drug allergies. SOCIAL HISTORY: No smoking, alcohol, or drug abuse. FAMILY HISTORY: No history of kidney disease. REVIEW OF SYSTEMS: The following complete review of systems was negative, unless otherwise mentioned in the HPI or below: CONSTITUTIONAL: Weight loss or gain, ability to conduct usual activities. SKIN: Rash, itching. EYES: Double vision, pain. ENT/MOUTH: Nose bleeding, neck stiffness, pain, tenderness. CARDIOVASCULAR: Palpitations, dyspnea on exertion, orthopnea. RESPIRATORY: Shortness of breath, wheezing, cough, hemoptysis, fever or night sweats. GASTROINTESTINAL: Poor appetite, abdominal pain, heartburn, nausea, vomiting, constipation, or diarr hea. GENITOURINARY: Urgency, frequency, dysuria, nocturia. MUSCULOSKELETAL: Pain, swelling. NEUROLOGIC/PSYCHIATRIC: Anxiety, depression. ALLERGY/IMMUNOLOGIC: Skin rash, bleeding tendency. PHYSICAL EXAMINATION: GENERAL: This is a well-built female in no apparent distress. VITAL SIGNS: Temperature 98.2, pulse of 100, respiratory rate 32, blood pressure was 201/109 on arri lidia. HEENT: Atraumatic, normocephalic. Oral mucosa is moist. NECK: Supple. CARDIOVASCULAR: S1, S2 heard, tachycardic. RESPIRATORY: Tachypnea present. No respiratory distress. GASTROINTESTINAL: Abdomen is obese. MUSCULOSKELETAL: 1+ edema. DERMATOLOGIC: No skin rash. NEUROLOGIC: Alert, awake, moving all the extremities. PSYCHIATRIC: Mood and affect normal. LABORATORY DATA: Hemoglobin 11.3. Potassium is 5.3, BUN is 49, creatinine is 6.08. ASSESSMENT AND PLAN: 1. End-stage renal disease on hemodialysis. Plan is to have dialysis as tolerated. 2. Elevated BNP. 3. Hyperkalemia. We will have emergent dialysis. 4. Edema. 5. Hypertension. 6. Fluid overload. We will have dialysis. 7. Advised to limit fluid. 8. Anemia, mild. 9. Acute respiratory failure, most likely secondary to fluid overload. Plan is to have emergent miriam lysis. Dialysis nurse notified. Thank you for the consultation. Plan is to have emergent dialysis.
[2017-04-08 06:50] LABS: Anion Gap 13 mmol/L (10-20); BUN (Urea Nitrogen) 31 mg/dL (9.8-20.1); Calc. Creatinine Clearance 19 mL/min (70-130); Calcium 9.8 mg/dL (7.8-10.44); Carbon Dioxide 32 mmol/L (23-31); Chloride 98 mmol/L (98-107); Estimated GFR-MDRD 12
[2017-04-08 07:19] LABS: #Eosinphils 0.1 thou/uL (0.0-0.7); #Lymphocytes 1.2 thou/uL (1.20-3.40); #Monocytes 0.4 thou/uL (0.11-0.59); #Neutrophils 2.7 thou/uL (1.40-6.50); %Basophils 0.3 % (0.0-1.0); %Eosinophils 2.4 % (0.0-10.0); %Lymphocytes 26.9 % (21.0-51.0); %Monocytes 9.9 % (0.0-10.0); Hematocrit 31.3 % (36.0-47.0); Mean Platelet Volume 9.2 fL (7.4-10.4); Red Blood Cell (RBC) Count 3.52 mill/uL (4.20-5.40); White Blood Cell (WBC) Count 4.4 thou/uL (4.8-10.8)
[2017-04-08] MEDS ORDERED: Glimepiride 4 MG TAB PO SCH (08:00)
[2017-04-08] MEDS: Sodium Chloride 0.9% 10 ML ONE (08:43)
--- NOTE | 2017-04-08 09:22 | PRG ---
Patient Name: OTTO REID Date of service: 04/08/2017 Subjective: Patient was seen and examined at bedside and overnight events noted. Patient denies any shortness of breath or chest pain or palpitation. No history of nausea or vomiting or diarrhea or fever or chills or cramps. Objective: General: This is an obese female in no apparent distress. Vital signs: Temperature 98.9, pulse 75, respirations 16, blood pressure 165/74. HEENT: Atraumatic, normocephalic. Oral mucosa is moist. Neck: Supple. Cardiovascular: S1 S2 heard. Rate and rhythm regular. Respiratory: The patient had bilateral crackles. Gastrointestinal: Abdomen is soft. Musculoskeletal: No tenderness. No edema. Dermatologic: No skin rash. Neurologic: Alert and awake and oriented X3. No focal neurologic deficits. Moving all the extremit ies. Psychiatric: Mood and affect normal. LABORATORY DATA: Potassium is 4.1, BUN 31, creatinine is 4.3. ASSESSMENT AND PLAN: 1. End-stage renal disease. Plan is to have an extra session of dialysis, 2 hours today to have ult rafiltration. The patient remains fluid overloaded, her breathing is much better. 2. Hyperkalemia, better. 3. Edema. We will remove fluid with dialysis. 4. Hypertension. 5. Fluid overload. 6. Anemia. 7. Acute respiratory failure needing oxygen. Plan is to have an extra session of dialysis for 2 hours today.
[2017-04-08] MEDS: Ferrous Sulfate 325 MG TAB PO SCH (13:27)
[2017-04-08] MEDS: Sevelamer Carbonate 800 MG TAB PO SCH ×3 (13:29→16:24)
[2017-04-08] MEDS: Amlodipine 10 MG TAB PO SCH (13:30)
[2017-04-08] MEDS: Aspirin 81 mg Enteric Coated Tablet PO SCH (13:30)
[2017-04-08] MEDS: Cinacalcet HCl 30 MG TAB PO SCH (13:30)
[2017-04-08] MEDS: Famotidine 20 MG TAB PO SCH (13:31)
[2017-04-08] MEDS: Folic Acid/Vit B Comp W-C PO SCH (13:31)
[2017-04-08] MEDS: Gabapentin 300 MG CAP PO SCH (13:32)
[2017-04-08] MEDS: Carvedilol 6.25 MG TAB PO SCH ×2 (13:32→16:24)
[2017-04-08] MEDS: Docusate 100 MG CAP PO SCH ×2 (13:32→21:04)
[2017-04-08] MEDS: cloNIDine 0.2 MG TAB PO SCH ×2 (13:32→21:07)
[2017-04-08] MEDS: Heparin 5,000 UNITS/ML VIAL SC SCH ×2 (13:33→21:07)
[2017-04-08] MEDS: Atorvastatin Calcium 20 MG TAB PO SCH (21:04)
--- NOTE | 2017-04-08 21:31 | PDOC.PN ---
- Subjective Encounter Start Date: 04/08/17 Encounter Start Time: 18:15 Patient seen and examined. No new complaints. No overnight events. SOB better. - Objective Resuscitation Status: Resuscitation Status FULL:Full Resuscitation MAR Reviewed: Yes Vital Signs & Weight: Vital Signs (12 hours) Temp Pulse Resp BP BP Pulse Ox 04/08/17 21:07 107/57 L 04/08/17 15:11 98.1 F 76 18 116/55 L 95 04/08/17 13:32 178/80 H 04/08/17 13:24 97.5 F L 77 20 177/84 H 100 04/08/17 12:00 77 163/83 H Weight Weight 207 lb 6.4 oz I&O: 04/07/17 04/08/17 04/09/17 06:59 06:59 06:59 Intake Total 270 1200 Balance 270 1200 Result Diagrams: 04/08/17 06:06 04/08/17 06:06 Additional Labs: Accuchecks 04/08/17 04/08/17 04/08/17 20:46 17:06 12:28 POC Glucose 137 H 213 H 190 H 04/08/17 04/07/17 06:03 22:27 POC Glucose 94 205 H EKG Reviewed by me: Yes (Tele SR, QTc 0.44) Phys Exam - Physical Examination Constitutional: NAD Respiratory: no wheezing, no rhonchi Cardiovascular: RRR, no rub Gastrointestinal: soft, non-tender, positive bowel sounds Neurological: non-focal, moves all 4 limbs Psychiatric: A&O x 3 Dx/Plan - Plan DVT proph w/heparin, DVT proph w/SCDs IMPRESSION: 1. Acute hypoxic/hypercapnic resp failure s/p NIPPV / Volume overload - improving 2. Elevated trop due to #1 3. ESRD on HD 4. Obesity BMI 33.5 5. Hyperkalemia - resolved 6. DM2/HTN/Chronic anemia/Chronic diastolic HF/DJD/Dyslipidemia PLAN: * Add sliding scale * Dialysis per Nephrology * Cont to monitor * Cont current meds as below * Nephro following Review of Systems - Review of Systems Respiratory: negative: Cough, Dry, Shortness of Breath, Hemoptysis, SOB with Excertion, Pleuritic Pain, Sputum, Wheezing Cardiovascular: negative: Chest Pain, Palpitations, Orthopnea, Paroxysmal Noc. Dyspnea, Edema, Light Headedness - Medications/Allergies Allergies/Adverse Reactions: Allergies Allergy/AdvReac Type Severity Reaction Status Date / Time No Known Allergies Allergy Unverified 02/03/17 02:45 Medications: Current Medications Acetaminophen (Tylenol) 650 mg PO Q4H PRN PRN Reason: Headache/Fever or Pain Last Admin: 04/07/17 22:18 Dose: 650 mg Amlodipine Besylate (Norvasc) 10 mg PO DAILY [facility] Last Admin: 04/08/17 13:30 Dose: 10 mg Aspirin (Ecotrin) 81 mg PO DAILY [facility] Last Admin: 04/08/17 13:30 Dose: 81 mg Atorvastatin Calcium (Lipitor) 20 mg PO [facility] Last Admin: 04/08/17 21:04 Dose: 20 mg Carvedilol (Coreg) 12.5 mg PO BID-[facility] Last Admin: 04/08/17 16:24 Dose: 12.5 mg Cinacalcet (Sensipar) 60 mg PO DAILY [facility] Last Admin: 04/08/17 13:30 Dose: 60 mg Clonidine (Catapres) 0.2 mg PO BID [facility] Last Admin: 04/08/17 21:07 Dose: Not Given Docusate Sodium (Colace) 100 mg PO BID [facility] Last Admin: 04/08/17 21:04 Dose: 100 mg Famotidine (Pepcid) 20 mg PO DAILY [facility] Last Admin: 04/08/17 13:31 Dose: 20 mg Ferrous Sulfate (Feosol) 325 mg PO [facility] Last Admin: 04/08/17 13:27 Dose: 325 mg Gabapentin (Neurontin) 300 mg PO DAILY [facility] Last Admin: 04/08/17 13:32 Dose: 300 mg [facility] Last Admin: 04/08/17 13:28 Dose: 4 mg Guaifenesin/Dextromethorphan (Robitussin Dm) 15 ml PO Q4H PRN PRN Reason: Cough Heparin Sodium (Porcine) (Heparin) 5,000 units SC BID [facility] Last Admin: 04/08/17 21:07 Dose: 5,000 units Isosorbide Mononitrate (Imdur Er) 15 mg PO DAILY [facility] Last Admin: 04/08/17 13:34 Dose: 15 mg Sevelamer Carbonate (Renvela) 800 mg PO TID-[facility] Last Admin: 04/08/17 16:24 Dose: 800 mg Vitamin B Complex/Vit C/Folic Acid (Nephro-Jenny Tablet) 1 tab PO DAILY [facility] Last Admin: 04/08/17 13:31 Dose: 1 tab
[2017-04-09] MEDS ORDERED: Dextrose 50% Abboject 50 ML SYRINGE SLOW IVP PRN (07:08)
[2017-04-09] MEDS ORDERED: Insulin Regular 300 UNITS/3 ML VIAL SC PRN ×2 (07:08)
[2017-04-09] MEDS ORDERED: Dextrose 5% in Water 1,000 ML IV PRN (07:08)
[2017-04-09] MEDS: Sevelamer Carbonate 800 MG TAB PO SCH ×3 (09:02→17:20)
[2017-04-09] MEDS: Carvedilol 6.25 MG TAB PO SCH ×2 (09:03→17:20)
[2017-04-09] MEDS: Famotidine 20 MG TAB PO SCH (09:05)
[2017-04-09] MEDS: Cinacalcet HCl 30 MG TAB PO SCH (09:06)
[2017-04-09] MEDS: Folic Acid/Vit B Comp W-C PO SCH (09:06)
[2017-04-09] MEDS: Aspirin 81 mg Enteric Coated Tablet PO SCH (09:07)
[2017-04-09] MEDS: Acetaminophen 325 MG TAB PO PRN ×2 (10:12→15:17)
[2017-04-09] MEDS: Ferrous Sulfate 325 MG TAB PO SCH (15:07)
[2017-04-09] MEDS: cloNIDine 0.2 MG TAB PO SCH ×2 (15:07→21:55)
[2017-04-09] MEDS: Heparin 5,000 UNITS/ML VIAL SC SCH ×2 (15:08→21:57)
[2017-04-09] MEDS: Gabapentin 300 MG CAP PO SCH (15:08)
[2017-04-09] MEDS: Docusate 100 MG CAP PO SCH ×2 (15:08→21:54)
[2017-04-09] MEDS: Amlodipine 10 MG TAB PO SCH (15:08)
--- NOTE | 2017-04-09 18:26 | CON ---
DATE OF CONSULTATION: 04/09/2017 REASON FOR CONSULTATION: Diastolic heart failure. REFERRING PROVIDER: Pro Shah M.D. HISTORY OF PRESENT ILLNESS: Ms. Mario is a pleasant 66-year-old woman who recently presented with s hortness of breath. She states she has been compliant with her dialysis treatments. She initially r equired BiPAP, but refused. No chest pain or pressure, or other associated symptoms. She has no pre vious history of underlying coronary disease. PAST MEDICAL HISTORY: Diabetes mellitus, end-stage renal disease, hypertension. MEDICATIONS: Gabapentin, Renvela, docusate, amlodipine, isosorbide, carvedilol, aspirin, losartan, g limepiride, Sensipar, clonidine, and atorvastatin. ALLERGIES: None. SOCIAL HISTORY: No current tobacco or alcohol use. REVIEW OF SYSTEMS: Ten point review of system is reviewed and is as above, negative. PHYSICAL EXAMINATION: VITAL SIGNS: Blood pressure 164/77, pulse 84, respirations 20. GENERAL: Patient is a pleasant male/female who is in no acute distress. The patient appears his/her stated age. NEUROLOGIC: The patient is alert and oriented times 3 with no focal neurologic deficits. HEENT: Sclerae without icterus. Mouth has moist mucous membranes with normal pallor. NECK: No JVD. Carotid upstroke brisk. No bruits bilaterally. LUNGS: Clear to auscultation with unlabored respirations. BACK: No scoliosis or kyphosis. CARDIAC: Regular rate and rhythm with normal S1 and S2. No S3 or S4 noted. No significant rubs, mu rmurs, thrills, or gallops noted throughout the precordium. PMI is not displaced. There is no héctor ternal heave. ABDOMEN: Soft, nontender, nondistended. No peritoneal signs present. No hepatosplenomegaly. No ab normal striae. EXTREMITIES: 2+ femoral and 2+ dorsalis pedis pulses. No cyanosis, clubbing, or edema. SKIN: No gross abnormalities. PERTINENT LABS: Hemoglobin 10.2, creatinine 4.38, BNP of 714. Peak troponin 0.066. IMPRESSION: 1. Shortness of breath. 2. End-stage renal disease. 3. Diabetes mellitus. 4. Hypertension. RECOMMENDATIONS: Ms. Mario's troponin has felt to be negative. Her BNP is mildly elevated and coul d suggest diastolic dysfunction. At this point, there is no proven benefit any particular versus ano ther for diastolic heart failure. Carvedilol has shown some improvement in addition to spironolacton e. At this point, would treat her blood pressure aggressively. Echo with Doppler has been ordered. Otherwise, I have no further recommendations.
--- NOTE | 2017-04-09 21:22 | PRG ---
DATE OF SERVICE: 04/09/2017 SUBJECTIVE: The patient was seen and examined at bedside and overnight events noted. The patient de nies any shortness of breath or chest pain or palpitation. No history of nausea or vomiting or diarr hea or fever or chills or cramps. OBJECTIVE: GENERAL: This is a well-built female, in no apparent distress. VITAL SIGNS: Temperature 98.5, pulse 84, respirations 20, blood pressure 144/75. HEENT: Atraumatic, normocephalic, Oral mucosa is moist. NECK: Supple. CARDIOVASCULAR: S1, S2 heard, rate and rhythm regular. RESPIRATORY: Clear to auscultation. GASTROINTESTINAL: Abdomen is soft. MUSCULOSKELETAL: No tenderness, no edema. DERMATOLOGIC: No skin rash. NEUROLOGIC: Alert and awake and oriented x3. No focal neurologic deficits. Moving all the extremit ies. PSYCHIATRIC: Mood and affect normal. LABORATORY DATA: Not done today. ASSESSMENT AND PLAN: 1. End-stage renal disease. Continue on hemodialysis, fluid overload. Remove fluid. 2. Acute hypoxic respiratory failure. 3. Anemia, mild. 4. Edema. 4. Hypertension. Seems to be stable. 5. Agree with cardiac workup and Cardiology consult. We will continue dialysis as tolerated.
[2017-04-09] MEDS: Atorvastatin Calcium 20 MG TAB PO SCH (21:54)
--- NOTE | 2017-04-09 23:30 | PDOC.PN ---
- Subjective Encounter Start Date: 04/09/17 Encounter Start Time: 16:30 Patient seen and examined. No new complaints. No overnight events. s/p dialysis - Objective Resuscitation Status: Resuscitation Status FULL:Full Resuscitation MAR Reviewed: Yes Vital Signs & Weight: Vital Signs (12 hours) Temp Pulse Pulse Pulse Resp BP BP 04/09/17 19:15 98.2 F 88 18 04/09/17 17:20 144/74 H 04/09/17 15:08 80 144/74 H 04/09/17 15:07 144/74 H 04/09/17 15:00 98.5 F 84 20 04/09/17 13:34 83 80 146/67 H BP BP Pulse Ox 04/09/17 19:15 112/59 L 93 L 04/09/17 17:20 04/09/17 15:08 04/09/17 15:07 04/09/17 15:00 144/74 H 99 04/09/17 13:34 164/77 H Weight Weight 203 lb 9.6 oz I&O: 04/08/17 04/09/17 04/10/17 06:59 06:59 06:59 Intake Total 270 1420 360 Output Total 2500 Balance 270 1420 -2140 Result Diagrams: 04/08/17 06:06 04/08/17 06:06 Additional Labs: Accuchecks 04/09/17 04/09/17 04/09/17 20:37 16:24 12:31 POC Glucose 201 H 202 H 147 H 04/09/17 04/09/17 07:05 05:47 POC Glucose 96 70 EKG Reviewed by me: Yes (Tele SR) Phys Exam - Physical Examination Constitutional: NAD Respiratory: no wheezing, no rhonchi Cardiovascular: RRR, no rub Gastrointestinal: soft, non-tender, positive bowel sounds Neurological: moves all 4 limbs Dx/Plan - Plan DVT proph w/SCDs IMPRESSION: 1. Acute hypoxic/hypercapnic resp failure s/p NIPPV / Acute on Chronic diastolic HF/Volume overload - improving 2. Elevated trop due to #1 3. ESRD on HD 4. Obesity BMI 33.5 5. Hyperkalemia - resolved 6. DM2/HTN/Chronic anemia//DJD/Dyslipidemia PLAN: * Reduce Glimepiride to 1 mg daily * Consult Cardiology for possible CAD * Dialysis per Nephrology * Cont to monitor * Cont current meds as below * Nephro following Review of Systems - Review of Systems Respiratory: negative: Cough, Dry, Shortness of Breath, Hemoptysis, SOB with Excertion, Pleuritic Pain, Sputum, Wheezing Cardiovascular: negative: Chest Pain, Palpitations, Orthopnea, Paroxysmal Noc. Dyspnea, Edema, Light Headedness - Medications/Allergies Allergies/Adverse Reactions: Allergies Allergy/AdvReac Type Severity Reaction Status Date / Time No Known Allergies Allergy Unverified 02/03/17 02:45 Medications: Current Medications Acetaminophen (Tylenol) 650 mg PO Q4H PRN PRN Reason: Headache/Fever or Pain Last Admin: 04/09/17 15:17 Dose: 650 mg Amlodipine Besylate (Norvasc) 10 mg PO DAILY [facility] Last Admin: 04/09/17 15:08 Dose: 10 mg Aspirin (Ecotrin) 81 mg PO DAILY [facility] Last Admin: 04/09/17 09:07 Dose: 81 mg Atorvastatin Calcium (Lipitor) 20 mg PO [facility] Last Admin: 04/09/17 21:54 Dose: 20 mg Carvedilol (Coreg) 12.5 mg PO BID-[facility] Last Admin: 04/09/17 17:20 Dose: 12.5 mg Cinacalcet (Sensipar) 60 mg PO DAILY [facility] Last Admin: 04/09/17 09:06 Dose: 60 mg Clonidine (Catapres) 0.2 mg PO BID [facility] Last Admin: 04/09/17 21:55 Dose: Not Given Dextrose/Water (Dextrose 50%) 25 gm SLOW IVP PRN PRN PRN Reason: Hypoglycemia Docusate Sodium (Colace) 100 mg PO BID [facility] Last Admin: 04/09/17 21:54 Dose: 100 mg Famotidine (Pepcid) 20 mg PO DAILY [facility] Last Admin: 04/09/17 09:05 Dose: 20 mg Ferrous Sulfate (Feosol) 325 mg PO QAM-[facility] Last Admin: 04/09/17 15:07 Dose: 325 mg Gabapentin (Neurontin) 300 mg PO DAILY [facility] Last Admin: 04/09/17 15:08 Dose: 300 mg Glucagon (Glucagon) 1 mg IM PRN PRN PRN Reason: Hypoglycemia Guaifenesin/Dextromethorphan (Robitussin Dm) 15 ml PO Q4H PRN PRN Reason: Cough Heparin Sodium (Porcine) (Heparin) 5,000 units SC BID [facility] Last Admin: 04/09/17 21:57 Dose: Not Given Dextrose/Water (D5w) 1,000 mls @ 0 mls/hr IV .Q0M PRN; As Directed PRN Reason: Hypoglycemia Insulin Human Regular (Humulin R) 0 units SC .MILD SLIDING SCALE PRN PRN Reason: Mild Correctional Scale Insulin Human Regular (Humulin R) 0 units SC .BEDTIME SLIDING SC PRN PRN Reason: Bedtime Correctional Scale Isosorbide Mononitrate (Imdur Er) 15 mg PO DAILY [facility] Last Admin: 04/09/17 15:07 Dose: 15 mg Sevelamer Carbonate (Renvela) 800 mg PO TID-[facility] Last Admin: 04/09/17 17:20 Dose: 800 mg Vitamin B Complex/Vit C/Folic Acid (Nephro-Jenny Tablet) 1 tab PO DAILY [facility] Last Admin: 04/09/17 09:06 Dose: 1 tab
[2017-04-10 05:25] LABS: Anion Gap 15 mmol/L (10-20); BUN (Urea Nitrogen) 46 mg/dL (9.8-20.1); Calc. Creatinine Clearance 16 mL/min (70-130); Calcium 9.8 mg/dL (7.8-10.44); Carbon Dioxide 29 mmol/L (23-31); Chloride 97 mmol/L (98-107); Estimated GFR-MDRD 10
[2017-04-10 05:33] LABS: #Eosinphils 0.1 thou/uL (0.0-0.7); #Lymphocytes 1.7 thou/uL (1.20-3.40); #Monocytes 0.6 thou/uL (0.11-0.59); #Neutrophils 1.8 thou/uL (1.40-6.50); %Basophils 0.7 % (0.0-1.0); %Lymphocytes 40.8 % (21.0-51.0); %Monocytes 14.6 % (0.0-10.0); Mean Platelet Volume 9.6 fL (7.4-10.4); Red Blood Cell (RBC) Count 3.81 mill/uL (4.20-5.40); White Blood Cell (WBC) Count 4.3 thou/uL (4.8-10.8)
[2017-04-10] MEDS: cloNIDine 0.2 MG TAB PO SCH ×2 (09:20→20:59)
[2017-04-10] MEDS: Carvedilol 6.25 MG TAB PO SCH ×2 (09:21→17:10)
[2017-04-10] MEDS: Ferrous Sulfate 325 MG TAB PO SCH (09:22)
[2017-04-10] MEDS: Sevelamer Carbonate 800 MG TAB PO SCH ×3 (09:22→17:11)
[2017-04-10] MEDS: Aspirin 81 mg Enteric Coated Tablet PO SCH (09:22)
[2017-04-10] MEDS: Cinacalcet HCl 30 MG TAB PO SCH (09:22)
[2017-04-10] MEDS: Amlodipine 10 MG TAB PO SCH (09:22)
[2017-04-10] MEDS: Famotidine 20 MG TAB PO SCH (09:22)
[2017-04-10] MEDS: Gabapentin 300 MG CAP PO SCH (09:22)
[2017-04-10] MEDS: Docusate 100 MG CAP PO SCH ×2 (09:23→20:59)
[2017-04-10] MEDS: Heparin 5,000 UNITS/ML VIAL SC SCH ×2 (09:23→20:59)
[2017-04-10] MEDS: Folic Acid/Vit B Comp W-C PO SCH (09:23)
[2017-04-10] MEDS: Sodium Chloride 0.9% 10 ML ONE (09:27)
--- NOTE | 2017-04-10 09:56 | PRG ---
DATE OF SERVICE: 04/10/2017 SUBJECTIVE: Patient was seen and examined at bedside and overnight events noted. Patient denies any shortness of breath or chest pain or palpitation. No history of nausea or vomiting or diarrhea or f ever or chills or cramps. OBJECTIVE: GENERAL: This is a well-built female in no apparent distress. VITAL SIGNS: Temperature 98.7, pulse 79, respiratory rate 18, blood pressure 139/63. HEENT: Atraumatic, normocephalic. Oral mucosa is moist. NECK: Supple. CARDIOVASCULAR: S1, S2 heard. Rate and rhythm regular. RESPIRATORY: Clear to auscultation. GASTROINTESTINAL: Abdomen is soft. MUSCULOSKELETAL: No tenderness. No edema. DERMATOLOGIC: No skin rash. NEUROLOGIC: Alert and awake and oriented x3. No focal neurologic deficits. Moving all the extremiti es. PSYCHIATRIC: Mood and affect normal. LABORATORY DATA: Potassium 4.4, BUN is 26, creatinine is 5.0. ASSESSMENT AND PLAN: 1. End-stage renal disease. We will continue on hemodialysis Friday, Friday, and Friday. 2. Edema. 3. Fluid overload, much better. 4. Hypertension, stable. 5. Plan is to continue on dialysis Friday, Friday, and Friday as tolerated.
[2017-04-10] MEDS: Glimepiride 1 MG TAB PO SCH (10:59)
--- NOTE | 2017-04-10 12:08 | PDOC.PN ---
- Subjective Encounter Start Date: 04/10/17 Encounter Start Time: 07:50 Subjective: no sob, is awake and responds well to verbal stimuli - Objective Resuscitation Status: Resuscitation Status FULL:Full Resuscitation MAR Reviewed: Yes Vital Signs & Weight: Vital Signs (12 hours) Temp Pulse Resp BP BP Pulse Ox 04/10/17 09:22 79 139/63 04/10/17 09:21 139/63 04/10/17 09:20 139/63 04/10/17 07:57 98.7 F 79 18 139/63 92 L 04/10/17 04:00 97.3 F L 70 20 139/67 90 L Weight Weight 203 lb I&O: 04/09/17 04/10/17 04/11/17 06:59 06:59 06:59 Intake Total 1420 600 Output Total 2500 Balance 1420 -1900 Result Diagrams: 04/10/17 04:44 04/10/17 04:44 Additional Labs: Accuchecks 04/10/17 04/09/17 04/09/17 05:58 20:37 16:24 POC Glucose 122 H 201 H 202 H 04/09/17 12:31 POC Glucose 147 H Phys Exam - Physical Examination HEENT: PERRLA, moist MMs Neck: no JVD, supple Respiratory: no wheezing, no rales Cardiovascular: RRR, no significant murmur Gastrointestinal: soft, non-tender, positive bowel sounds Musculoskeletal: no edema, pulses present Neurological: non-focal, moves all 4 limbs Psychiatric: A&O x 3 Dx/Plan (1) Volume overload Code(s): E87.70 - FLUID OVERLOAD, UNSPECIFIED Status: Resolved (2) Acute respiratory failure with hypoxia Code(s): J96.01 - ACUTE RESPIRATORY FAILURE WITH HYPOXIA Status: Resolved (3) Chronic anemia Code(s): D64.9 - ANEMIA, UNSPECIFIED Status: Chronic (4) Dyslipidemia Code(s): E78.5 - HYPERLIPIDEMIA, UNSPECIFIED Status: Chronic (5) DM type 2 (diabetes mellitus, type 2) Status: Chronic Qualifiers: Diabetes mellitus complication status: with kidney complications Diabetes mellitus complication detail: with chronic kidney disease Diabetes mellitus senior living insulin use: without art installer use Chronic kidney disease stage: on chronic dialysis Qualified Code(s): E11.22 - Type 2 diabetes mellitus with diabetic chronic kidney disease; N18.6 - End stage renal disease; N18.6 - End stage renal disease; N18.6 - End stage renal disease; N18.6 - End stage renal disease; Z99.2 - Dependence on renal dialysis; Z99.2 - Dependence on renal dialysis; Z99.2 - Dependence on renal dialysis; Z99.2 - Dependence on renal dialysis (6) ESRD (end stage renal disease) on dialysis Code(s): N18.6 - END STAGE RENAL DISEASE; Z99.2 - DEPENDENCE ON RENAL DIALYSIS Status: Chronic (7) HTN (hypertension) Code(s): I10 - ESSENTIAL (PRIMARY) HYPERTENSION Status: Chronic Qualifiers: Hypertension type: essential hypertension Qualified Code(s): I10 - Essential (primary) hypertension - Plan had back to back HD with resolution of volume overload -: PT to mobilize pt in hallway as tolerated -: dc plan in am -: will need ?HH with PT, await PT recommendation * . Review of Systems - Medications/Allergies Allergies/Adverse Reactions: Allergies Allergy/AdvReac Type Severity Reaction Status Date / Time No Known Allergies Allergy Unverified 02/03/17 02:45 Medications: Current Medications Acetaminophen (Tylenol) 650 mg PO Q4H PRN PRN Reason: Headache/Fever or Pain Last Admin: 04/09/17 15:17 Dose: 650 mg Amlodipine Besylate (Norvasc) 10 mg PO DAILY [facility] Last Admin: 04/10/17 09:22 Dose: 10 mg Aspirin (Ecotrin) 81 mg PO DAILY [facility] Last Admin: 04/10/17 09:22 Dose: 81 mg Atorvastatin Calcium (Lipitor) 20 mg PO HS [facility] Last Admin: 04/09/17 21:54 Dose: 20 mg Carvedilol (Coreg) 12.5 mg PO BID-[facility] Last Admin: 04/10/17 09:21 Dose: 12.5 mg Cinacalcet (Sensipar) 60 mg PO DAILY [facility] Last Admin: 04/10/17 09:22 Dose: 60 mg Clonidine (Catapres) 0.2 mg PO BID [facility] Last Admin: 04/10/17 09:20 Dose: 0.2 mg Dextrose/Water (Dextrose 50%) 25 gm SLOW IVP PRN PRN PRN Reason: Hypoglycemia Docusate Sodium (Colace) 100 mg PO BID [facility] Last Admin: 04/10/17 09:23 Dose: 100 mg Famotidine (Pepcid) 20 mg PO DAILY [facility] Last Admin: 04/10/17 09:22 Dose: 20 mg Ferrous Sulfate (Feosol) 325 mg PO QAM-[facility] Last Admin: 04/10/17 09:22 Dose: 325 mg Gabapentin (Neurontin) 300 mg PO DAILY [facility] Last Admin: 04/10/17 09:22 Dose: 300 mg Glimepiride (Amaryl) 1 mg PO QAM-[facility] Last Admin: 04/10/17 10:59 Dose: 1 mg Glucagon (Glucagon) 1 mg IM PRN PRN PRN Reason: Hypoglycemia Guaifenesin/Dextromethorphan (Robitussin Dm) 15 ml PO Q4H PRN PRN Reason: Cough Heparin Sodium (Porcine) (Heparin) 5,000 units SC BID [facility] Last Admin: 04/10/17 09:23 Dose: 5,000 units Dextrose/Water (D5w) 1,000 mls @ 0 mls/hr IV .Q0M PRN; As Directed PRN Reason: Hypoglycemia Insulin Human Regular (Humulin R) 0 units SC .MILD SLIDING SCALE PRN PRN Reason: Mild Correctional Scale Insulin Human Regular (Humulin R) 0 units SC .BEDTIME SLIDING SC PRN PRN Reason: Bedtime Correctional Scale Isosorbide Mononitrate (Imdur Er) 15 mg PO DAILY [facility] Last Admin: 04/10/17 09:19 Dose: 15 mg Sevelamer Carbonate (Renvela) 800 mg PO TID-[facility] Last Admin: 04/10/17 09:22 Dose: 800 mg Vitamin B Complex/Vit C/Folic Acid (Nephro-Jenny Tablet) 1 tab PO DAILY [facility] Last Admin: 04/10/17 09:23 Dose: 1 tab
[2017-04-10] MEDS ORDERED: Bisacodyl 10 MG SUPP PR SCH (14:30)
[2017-04-10] MEDS: Acetaminophen 325 MG TAB PO PRN (15:25)
[2017-04-10] MEDS: Atorvastatin Calcium 20 MG TAB PO SCH (20:59)
[2017-04-11] MEDS: Acetaminophen 325 MG TAB PO PRN (08:13)
[2017-04-11] MEDS ORDERED: Polyethylene Glycol 3350 17 GM Packet PO SCH (09:00)
[2017-04-11] MEDS ORDERED: Heparin 1,000 UNITS/ML VIAL ONE (11:11)
--- NOTE | 2017-04-11 12:30 | PDOC.PN ---
- Subjective Encounter Start Date: 04/11/17 Encounter Start Time: 07:45 Subjective: feels good, no sob -: having HD - Objective Resuscitation Status: Resuscitation Status FULL:Full Resuscitation MAR Reviewed: Yes Vital Signs & Weight: Vital Signs (12 hours) Temp Pulse Resp BP Pulse Ox 04/11/17 08:00 98.0 F 79 17 04/11/17 07:43 98.0 F 79 17 171/74 H 94 L 04/11/17 04:00 97.6 F 70 20 155/72 H 20 L 04/11/17 00:50 98.0 F 70 18 118/63 91 L Weight Weight 200 lb 1.6 oz I&O: 04/10/17 04/11/17 04/12/17 06:59 06:59 06:59 Intake Total 600 250 Output Total 2500 Balance -1900 250 Result Diagrams: 04/10/17 04:44 04/10/17 04:44 Additional Labs: Accuchecks 04/11/17 04/11/17 04/10/17 10:59 05:47 20:53 POC Glucose 120 H 107 142 H 04/10/17 04/10/17 04/10/17 16:35 15:25 12:32 POC Glucose 129 H 141 H 175 H Phys Exam - Physical Examination HEENT: PERRLA, moist MMs Neck: no JVD, supple Respiratory: no wheezing, no rales Cardiovascular: RRR, no significant murmur Gastrointestinal: soft, non-tender, positive bowel sounds Musculoskeletal: no edema, pulses present Neurological: non-focal, moves all 4 limbs Psychiatric: A&O x 3 Dx/Plan (1) Volume overload Code(s): E87.70 - FLUID OVERLOAD, UNSPECIFIED Status: Resolved (2) Acute respiratory failure with hypoxia Code(s): J96.01 - ACUTE RESPIRATORY FAILURE WITH HYPOXIA Status: Resolved (3) Chronic anemia Code(s): D64.9 - ANEMIA, UNSPECIFIED Status: Chronic (4) Dyslipidemia Code(s): E78.5 - HYPERLIPIDEMIA, UNSPECIFIED Status: Chronic (5) DM type 2 (diabetes mellitus, type 2) Status: Chronic Qualifiers: Diabetes mellitus complication status: with kidney complications Diabetes mellitus complication detail: with chronic kidney disease Diabetes mellitus mcfp insulin use: without intermediate teacher use Chronic kidney disease stage: on chronic dialysis Qualified Code(s): E11.22 - Type 2 diabetes mellitus with diabetic chronic kidney disease; N18.6 - End stage renal disease; N18.6 - End stage renal disease; N18.6 - End stage renal disease; N18.6 - End stage renal disease; Z99.2 - Dependence on renal dialysis; Z99.2 - Dependence on renal dialysis; Z99.2 - Dependence on renal dialysis; Z99.2 - Dependence on renal dialysis (6) ESRD (end stage renal disease) on dialysis Code(s): N18.6 - END STAGE RENAL DISEASE; Z99.2 - DEPENDENCE ON RENAL DIALYSIS Status: Chronic (7) HTN (hypertension) Code(s): I10 - ESSENTIAL (PRIMARY) HYPERTENSION Status: Chronic Qualifiers: Hypertension type: essential hypertension Qualified Code(s): I10 - Essential (primary) hypertension - Plan hemostable -: dc pt home -: has traditions HH -: needs to find a PCP in the community * .
[2017-04-11] MEDS: cloNIDine 0.2 MG TAB PO SCH (13:08)
[2017-04-11] MEDS: Gabapentin 300 MG CAP PO SCH (13:08)
[2017-04-11] MEDS: Sevelamer Carbonate 800 MG TAB PO SCH ×2 (13:08→13:11)
[2017-04-11] MEDS: Cinacalcet HCl 30 MG TAB PO SCH (13:08)
[2017-04-11] MEDS: Amlodipine 10 MG TAB PO SCH (13:08)
[2017-04-11] MEDS: Carvedilol 6.25 MG TAB PO SCH (13:09)
[2017-04-11] MEDS: Folic Acid/Vit B Comp W-C PO SCH (13:09)
[2017-04-11] MEDS: Aspirin 81 mg Enteric Coated Tablet PO SCH (13:09)
[2017-04-11] MEDS: Ferrous Sulfate 325 MG TAB PO SCH (13:09)
[2017-04-11] MEDS: Famotidine 20 MG TAB PO SCH (13:09)
[2017-04-11] MEDS: Glimepiride 1 MG TAB PO SCH (13:10)
[2017-04-11] MEDS: Docusate 100 MG CAP PO SCH (13:10)
[2017-04-11] MEDS: Heparin 5,000 UNITS/ML VIAL SC SCH (13:13)
[2017-04-11 14:15] VITALS: TEMP 98.3
[2017-04-11 16:59] VITALS: BP 119/57
--- NOTE | 2017-04-11 17:01 | DIS ---
DATE OF ADMISSION: 04/07/2017 DATE OF DISCHARGE: 04/11/2017 DISCHARGE DISPOSITION: To home. PRIMARY DISCHARGE DIAGNOSES: Volume overload due to inadequate hemodialysis, resolved; end-stage maryjane al disease, on hemodialysis; initial acute respiratory failure with hypoxia due to volume overload, r esolved; chronic anemia due to renal disease; dyslipidemia; diabetes mellitus type 2; hypertension. PROCEDURES DONE DURING HOSPITALIZATION: Echo with 2D Doppler done showed an EF of 50% to 55% with mo derate concentric LVH. H&H 11 and 34, platelet count 126. Discharge BUN and creatinine is 46 and 5. 0 with serum bicarbonate of 29. BNP on the day of admission was 714. Potassium was 5.3. HBS antige n nonreactive. DISCHARGE MEDICATIONS: Norvasc 10 mg daily, aspirin 81 mg daily, atorvastatin 20 mg p.o. at bedtime, Coreg 25 mg twice daily, Sensipar 60 mg daily, clonidine 0.2 mg twice daily, Colace 100 mg twice sonido ly, ferrous sulfate 325 mg p.o. daily, Jess-Jenny 1 tablet daily, gabapentin 300 mg daily, glimepiride 4 mg daily, Imdur extended release 15 mg daily, losartan 50 mg twice daily, Renvela 800 mg 3 times d aily with meals. ALLERGIES: No known drug allergies. INPATIENT CONSULT: Dr. Hendricks for Nephrology. BRIEF COURSE DURING HOSPITALIZATION: The patient initially got admitted on the for complaints o f shortness of breath. Her initial saturations were 70% on room air and was briefly placed on BiPAP on arrival. The patient also had mild hyperkalemia. She dialyzed only 2 hours on Friday prior to tata breen here. The patient was taken for emergent hemodialysis. She has had back to back hemodialysis done. She has remained hemodynamically stable. Her medications were optimized during her stay here. She needs to continue her Friday, Friday, Friday schedule hemodialysis. She has been counseled adequately with regards to medication compliance and hemodialysis compliance. Please see a face to f julius documentation on [facility] for the day of discharge.
--- NOTE | 2017-04-11 23:56 | PRG ---
DATE OF SERVICE: 04/12/2017 SUBJECTIVE: Patient was seen and examined at bedside and overnight events noted. Patient denies any shortness of breath or chest pain or palpitation. No history of nausea or vomiting or diarrhea or f ever or chills or cramps. OBJECTIVE: GENERAL: This is a well-built female in no apparent distress. VITAL SIGNS: Temperature 98.3, pulse 85, respiratory rate 17, blood pressure 137/67. HEENT: Atraumatic, normocephalic. Oral mucosa is moist. NECK: Supple. CARDIOVASCULAR: S1, S2 heard. Rate and rhythm regular. RESPIRATORY: Clear to auscultation. GASTROINTESTINAL: Abdomen is soft. MUSCULOSKELETAL: No tenderness. No edema. DERMATOLOGIC: No skin rash. NEUROLOGIC: Alert and awake and oriented x3. No focal neurologic deficits. Moving all the extremiti es. PSYCHIATRIC: Mood and affect normal. LABORATORY DATA: No labs done today. ASSESSMENT AND PLAN: 1. End-stage renal disease. Continue on hemodialysis Friday, Friday, and Friday. 2. Edema. . 2. Hypertension. Plan is to continue on dialysis as tolerated.
--- NOTE | 2017-04-19 15:52 | EKG ---
Test Reason : SOB Blood Pressure : / mmHG Vent. Rate : 109 BPM Atrial Rate : 109 BPM P-R Int : 164 ms QRS Dur : 124 ms QT Int : 360 ms P-R-T Axes : 053 -12 130 degrees QTc Int : 484 ms Sinus tachycardia Possible Left atrial enlargement Left ventricular hypertrophy with QRS widening and repolarization abnormality Abnormal ECG Confirmed by LULY ONEILL, IVETTE ([id number]), content editor CAROL WAGNER ([id number]) on 04/19/2017 3:52:15 PM Referred By: NAS MAURICIO Confirmed By:IVETTE MAURICIO MD
== END 2017-04-11 16:15 | disposition home health service (06) | DRG 640 ==
LOC: ERS 08:02 → ERHOLD 09:30 → 2NO 18:43
PROVIDERS: ADMIT Internal Medicine; ATTEND Internal Medicine
PROC: 5A1D70Z Performance of Urinary Filtration, Intermittent, Less than 6 Hours Per Day (ICD-10-PCS; principal; 2017-04-07)
PROC: 5A09357 Assistance with Respiratory Ventilation, Less than 24 Consecutive Hours, Continuous Positive Airway Pressure (ICD-10-PCS; 2017-04-07)
DX: E87.70 Fluid overload, unspecified (principal); J96.01 Acute respiratory failure with hypoxia; I13.2 Hypertensive heart and chronic kidney disease with heart failure and with stage 5 chronic kidney disease, or end stage renal disease; N18.6 End stage renal disease; I07.1 Rheumatic tricuspid insufficiency; E11.22 Type 2 diabetes mellitus with diabetic chronic kidney disease; I50.32 Chronic diastolic (congestive) heart failure; D63.1 Anemia in chronic kidney disease; E78.5 Hyperlipidemia, unspecified; Z99.2 Dependence on renal dialysis; E87.5 Hyperkalemia; Z23 Encounter for immunization; I16.0 Hypertensive urgency; E66.9 Obesity, unspecified; Z68.33 Body mass index [BMI] 33.0-33.9, adult; Z53.29 Procedure and treatment not carried out because of patient's decision for other reasons
CPT/HCPCS: 36415; 36416; 71010; 80048; 80053; 82553; 82805; 83880; 84484; 85025; 87340; 90935; 93005; 93010; 93306; 93798; 94660; 94760; 96374; 96375; A4216; G0257; J0360; J1644; J1815; J1940; J2060

== ENCOUNTER 2017-04-16 16:50 | Inpatient (IN) | payer MEDICARE, MEDICAID ==
[2017-04-16 18:32] LABS: #Eosinphils 0.1 thou/uL (0.0-0.7); #Lymphocytes 1.4 thou/uL (1.20-3.40); #Monocytes 0.5 thou/uL (0.11-0.59); #Neutrophils 4.8 thou/uL (1.40-6.50); %Basophils 0.2 % (0.0-1.0); %Eosinophils 1.6 % (0.0-10.0); %Lymphocytes 20.8 % (21.0-51.0); %Monocytes 7.8 % (0.0-10.0); Hematocrit 21.2 % (36.0-47.0); Mean Platelet Volume 8.3 fL (7.4-10.4); Red Blood Cell (RBC) Count 2.43 mill/uL (4.20-5.40); White Blood Cell (WBC) Count 6.8 thou/uL (4.8-10.8)
[2017-04-16 18:53] LABS: Anion Gap 15 mmol/L (10-20); BUN (Urea Nitrogen) 40 mg/dL (9.8-20.1); CK (CPK) 63 U/L (29-168); Calc. Creatinine Clearance 0 mL/min (70-130); Calcium 8.5 mg/dL (7.8-10.44); Carbon Dioxide 35 mmol/L (23-31); Chloride 93 mmol/L (98-107); Estimated GFR-MDRD 12
[2017-04-16 18:58] LABS: Troponin I 0.052 ng/mL (< 0.028)
--- NOTE | 2017-04-16 21:05 | CT ---
CT BRAIN 04/16/17 PROVIDED CLINICAL HISTORY: Headache. FINDINGS: Comparison is made with the study dated 03/10/17. The ventricular system appears normal in size and morphology. There is no evidence for intracranial h emorrhage or mass effect. Remote ischemic changes involving the left parietal region are redemonstrat ed. Extracranial soft tissues and osseous structures demonstrate no acute abnormality. IMPRESSION: No evidence for intracranial hemorrhage or mass effect. POS: CRIS
--- NOTE | 2017-04-16 22:44 | CON ---
DATE OF CONSULTATION: 04/16/2017 REASON FOR CONSULTATION: Stage 6 chronic kidney disease, on maintenance hemodialysis. HISTORY OF PRESENT ILLNESS: A 66-year-old female presented to the hospital for severe diaphoresis an d hypoglycemia in the 40s. The patient denies headache, numbness, tingling or chest pain, but has be en diaphoretic and has been sweating. PAST MEDICAL HISTORY: Significant for diabetes mellitus, disease, hypertension, anemia, histor y of congestive heart failure, history of tracheostomy, anemia, history of tunneled dialysis catheter , history of AV fistula. HOME MEDICATIONS: List reviewed. HOSPITAL MEDICATIONS: List reviewed. REVIEW OF SYSTEMS: A 15-point review of systems was performed and negative except positives noted ab ove. PHYSICAL EXAMINATION: GENERAL: Patient is awake, alert. VITAL SIGNS: Afebrile, pulse 75, breathing 16, blood pressure was 110/70. GENERAL APPEARANCE AND MENTAL STATUS: Fair. HEAD/NECK: Normocephalic. Atraumatic. EYES: EOMI. No deformity. EARS: Clear. No ulcers. NOSE: Intact. No lesions. MOUTH: Clear. No discharge. THROAT: Clear. No exudate. LUNGS: Clear. No crackles. CARDIAC: S1, S2. No rub. ABDOMEN: Benign. BS+. GENITALIA/RECTUM: Hylton absent. BACK/EXTREMITIES: Edema 0+ Ulcer- NEUROLOGICAL: Alert and motor intact. SKIN: Rash- Bruise- LYMPHATICS: Edema- Ulcer- LABORATORY: Blood glucose 92. ASSESSMENT AND RECOMMENDATIONS: 1. Stage 6 chronic kidney disease. No indication for dialysis today. We will plan dialysis Friday. 2. Hypertension, stable. 3. Anemia, stable. 4. Medications based on glomerular filtration rate, avoid glyburide.
[2017-04-17 00:05] LABS: Bilirubin Negative (Negative); Blood, Urine Trace (Negative); Glucose, Urine (Dipstick) Negative (Negative); Ketone, Urine Negative (Negative); Nitrite Negative (Negative); Protein, Urine (Dipstick) 100 mg/dL (Neg-Trace); Urobilinogen 0.2 mg/dL (0.2-1.0)
[2017-04-17 00:07] LABS: Bacteria/HPF Rare-Few HPF (None Seen); Hyaline Casts/LPF 0-3 HYALINE CAST LPF (0-3 Hyaline)
[2017-04-17 00:32] LABS: Renal Epithelial None Seen HPF (0-3); Transitional Epithelial NONE SEEN HPF (0-3); Yeast-All Forms None Seen HPF (None Seen)
[2017-04-17] MEDS ORDERED: Nitrofurantoin Monohyd/M-Cryst 100 MG CAP PO SCH (01:00)
[2017-04-17 02:39] VITALS: BMI 32.3
[2017-04-17] MEDS ORDERED: Ondansetron ODT 4 MG TAB PO PRN (09:45)
[2017-04-17] MEDS ORDERED: Ondansetron HCl/PF 4 MG/2 ML Vial IVP PRN (09:45)
[2017-04-17] MEDS ORDERED: Docusate 100 MG CAP PO PRN (09:45)
[2017-04-17] MEDS ORDERED: Acetaminophen 500 MG TAB PO PRN (09:45)
[2017-04-17] MEDS ORDERED: Dextrose 50% Abboject 50 ML SYRINGE SLOW IVP PRN (09:45)
[2017-04-17] MEDS ORDERED: HumaLOG 300 UNITS/3 ML VIAL SC PRN ×2 (09:45)
[2017-04-17] MEDS ORDERED: cloNIDine 0.1 MG TAB PO PRN (09:45)
[2017-04-17] MEDS ORDERED: Dextrose 5% in Water 1,000 ML IV PRN (09:45)
[2017-04-17] MEDS ORDERED: hydrALAZINE 20 MG/ML VIAL SLOW IVP PRN (09:45)
--- NOTE | 2017-04-17 11:03 | PRG ---
DATE OF SERVICE: 04/17/2017 SUBJECTIVE: This is a 66-year-old female being seen for end-stage renal disease. The patient denies any nausea, vomiting or chest pain. OBJECTIVE: GENERAL: Patient is awake and alert. VITAL SIGNS: Afebrile, pulse 80, breathing at 16, blood pressure is 169/83. HEAD/NECK: Normocephalic. Atraumatic. EYES: EOMI. No deformity. EARS: Clear. No ulcers. NOSE: Intact. No lesions. MOUTH: Clear. No discharge. THROAT: Clear. No exudate. LUNGS: Clear. No crackles. CARDIAC: S1, S2. No rub. ABDOMEN: Benign. BS+. GENITALIA/RECTUM: Hylton absent. BACK/EXTREMITIES: Edema 0+. Ulcer-. NEUROLOGICAL: Alert and motor intact. SKIN: Rash-. Bruise-. LYMPHATICS: Edema-. Ulcer-. LABORATORY DATA: Showed a hemoglobin of 7.1. ASSESSMENT AND RECOMMENDATIONS: 1. Stage 6 chronic kidney disease. Plan hemodialysis. 2. Anemia. Plan transfusion with dialysis. 3. Medications based on glomerular filtration rate are appropriate.
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
[2017-04-17 12:41] LABS: Hematocrit 31.2 % (36.0-47.0)
[2017-04-17] MEDS: Sevelamer Carbonate 800 MG TAB PO SCH ×2 (12:43→17:27)
[2017-04-17] MEDS: Carvedilol 25 MG TAB PO SCH (20:48)
[2017-04-17] MEDS: cloNIDine 0.2 MG TAB PO SCH (20:48)
[2017-04-17] MEDS: Losartan Potassium 25 MG TAB PO SCH (20:48)
[2017-04-17] MEDS ORDERED: Famotidine 20 MG TAB PO SCH (21:00)
[2017-04-17] MEDS ORDERED: Atorvastatin Calcium 20 MG TAB PO SCH (21:00)
[2017-04-18] MEDS: Carvedilol 25 MG TAB PO SCH (06:00)
[2017-04-18] MEDS: cloNIDine 0.2 MG TAB PO SCH (06:00)
[2017-04-18 06:10] LABS: Hematocrit 32.4 % (36.0-47.0); Mean Platelet Volume 9.2 fL (7.4-10.4); Neutrophil 58 % (42-75); Red Blood Cell (RBC) Count 3.69 mill/uL (4.20-5.40); White Blood Cell (WBC) Count 4.4 thou/uL (4.8-10.8)
[2017-04-18 06:19] LABS: Anion Gap 19 mmol/L (10-20); BUN (Urea Nitrogen) 59 mg/dL (9.8-20.1); Calc. Creatinine Clearance 13 mL/min (70-130); Calcium 9.5 mg/dL (7.8-10.44); Carbon Dioxide 28 mmol/L (23-31); Chloride 94 mmol/L (98-107); Estimated GFR-MDRD 8
[2017-04-18] MEDS: Sevelamer Carbonate 800 MG TAB PO SCH ×3 (07:10→17:24)
[2017-04-18] MEDS: Cinacalcet HCl 30 MG TAB PO SCH ×2 (07:10→12:02)
[2017-04-18] MEDS: Ferrous Sulfate 325 MG TAB PO SCH ×2 (07:10→12:02)
[2017-04-18] MEDS ORDERED: Glimepiride 4 MG TAB PO SCH (09:00)
[2017-04-18] MEDS ORDERED: Aspirin 81 mg Enteric Coated Tablet PO SCH (09:00)
[2017-04-18] MEDS ORDERED: Gabapentin 300 MG CAP PO SCH (09:00)
[2017-04-18] MEDS ORDERED: Folic Acid/Vit B Comp W-C PO SCH (09:00)
[2017-04-18] MEDS ORDERED: Amlodipine 10 MG TAB PO SCH (09:00)
--- NOTE | 2017-04-18 10:15 | PRG ---
DATE OF SERVICE: 04/18/2017 SUBJECTIVE: This is a 66-year-old female being seen for end-stage renal disease. The patient denies any nausea, vomiting or chest pain. PHYSICAL EXAMINATION: GENERAL: Patient is awake, alert. VITAL SIGNS: Afebrile, pulse 77, breathing at 16, blood pressure 152/80. HEAD/NECK: Normocephalic. Atraumatic. EYES: EOMI. No deformity. EARS: Clear. No ulcers. NOSE: Intact. No lesions. MOUTH: Clear. No discharge. THROAT: Clear. No exudate. LUNGS: Clear. No crackles. CARDIAC: S1, S2. No rub. ABDOMEN: Benign. BS+. GENITALIA/RECTUM: [place]yl[place] absent. BACK/EXTREMITIES: Edema 0+ Ulcer- NEUROLOGICAL: Alert and motor intact. SKIN: Rash- Bruise- LYMPHATICS: Edema- Ulcer- LABORATORY DATA: Show hemoglobin 10.4, potassium 5.7. ASSESSMENT AND RECOMMENDATIONS: 1. Stage 6 chronic kidney disease. We will plan hemodialysis. 2. Hyperkalemia, plan dialysis. 3. Hypertension, stable. 4. Anemia, stable. 5. Medications based on glomerular filtration rate are appropriate.
[2017-04-18] MEDS: Losartan Potassium 25 MG TAB PO SCH (11:49)
--- NOTE | 2017-04-18 13:28 | DIS ---
DATE OF ADMISSION: 04/17/2017 DATE OF DISCHARGE: 04/18/2017 DISCHARGE DIAGNOSES: 1. Hypoglycemia, iatrogenic secondary to Amaryl, improved. 2. Acute metabolic encephalopathy secondary to hypoglycemia, resolved. 3. Chronic normocytic anemia secondary to chronic kidney disease, stable. 4. End-stage renal disease with hemodialysis, stable. 5. Diabetes mellitus type 2, diet managed. 6. Hypertension, stable. CONSULTATIONS: Dr. Ware with Nephrology Service. PERTINENT LABORATORY AND X-RAY FINDINGS: Potassium ranged between 4.4-5.7. Creatinine ranged betwee n 4.54-6.50. CBC showed a hemoglobin ranged between 7.1-10.4. Urine culture dated 04/16/2017, showi ng mixed shawnee. Stool Hemoccult 04/17/[address] of the brain without contrast dated 017, showed no acute intracranial process. HOSPITAL COURSE: Patient was admitted to the medical floor after initially presenting with altered m entation and encephalopathic changes in association with hypoglycemia with blood sugars in the 40s. The patient was notably taking Amaryl 4 mg daily for diabetes mellitus type 2. The patient was given an amp of D50 as well as intravenous normal saline with overall glucose trend showing low values aft er discontinuation of Amaryl. Patient was recommended to discontinue Amaryl indefinitely and to use dietary measures for diabetic management after discharge. The patient received maintenance hemodialy sis during her hospital course without complication. The patient was noted with questionable worseni ng anemia with initial hemoglobin of 7 with repeat hemoglobin showing a value of 10 negating a potent ial transfusion. The patient exhibited no evidence of acute blood loss and overall remained clinical ly stable throughout the hospital course. Overall, the patient continued with regular p.o. intake wi thout difficulty, voiding appropriately with stable vital signs at the time of discharge, 04/18/2017. DISCHARGE MEDICATIONS: 1. Amlodipine 10 mg 1 tab p.o. daily. 2. Aspirin enteric coated 81 mg 1 tab p.o. daily. 3. Lipitor 20 mg one tablet p.o. at bedtime. 4. Carvedilol 25 mg p.o. b.i.d. 5. Sensipar 60 mg 1 tab p.o. daily. 6. Clonidine 0.2 mg p.o. b.i.d. 7. Colace 100 mg 1 tab p.o. b.i.d. 8. Feosol 325 mg 1 tab p.o. daily. 9. Folic acid with vitamin B one tablet p.o. daily. 10. Gabapentin 300 mg one tab p.o. daily. 11. Imdur 15 mg p.o. daily. 12. Losartan 50 mg p.o. b.i.d. 13. Renvela 800 mg p.o. t.i.d. FOLLOWUP: Patient will follow up with her primary care provider, Dr. Shaun Aguirre within 7 days of d ischarge. The patient will follow up with Dr. Ware with Nephrology Service and to call his office fo r appointment time and date. CONDITION ON DISCHARGE: Stable. ACTIVITY: Ad evaristo. DIET: Heart healthy and ADA. CODE STATUS: FULL. DISPOSITION: Home, 04/18/2017.
[2017-04-18 16:45] VITALS: BP 140/68; TEMP 98.4
== END 2017-04-18 17:31 | disposition home or self-care (01) | DRG 637 ==
LOC: ERS 16:50 → T4-A 04-17 00:16
PROVIDERS: ADMIT Internal Medicine; ATTEND Internal Medicine
PROC: 5A1D70Z Performance of Urinary Filtration, Intermittent, Less than 6 Hours Per Day (ICD-10-PCS; principal; 2017-04-17)
DX: E11.649 Type 2 diabetes mellitus with hypoglycemia without coma (principal); G93.41 Metabolic encephalopathy; N18.6 End stage renal disease; E87.5 Hyperkalemia; I13.11 Hypertensive heart and chronic kidney disease without heart failure, with stage 5 chronic kidney disease, or end stage renal disease; E78.5 Hyperlipidemia, unspecified; D64.9 Anemia, unspecified; D63.8 Anemia in other chronic diseases classified elsewhere; Z99.2 Dependence on renal dialysis; Z79.82 Long term (current) use of aspirin; Z83.3 Family history of diabetes mellitus; Z82.49 Family history of ischemic heart disease and other diseases of the circulatory system; T38.3X5A Adverse effect of insulin and oral hypoglycemic [antidiabetic] drugs, initial encounter
CPT/HCPCS: 36415; 36416; 70450; 80048; 81003; 81015; 82274; 82550; 82553; 84484; 85007; 85014; 85018; 85025; 85027; 86850; 86900; 86901; 87086; 93005

== ENCOUNTER 2017-07-11 03:58 | Emergency (ER) | payer MEDICARE, MEDICAID ==
[2017-07-11 04:56] LABS: #Eosinphils 0.1 thou/uL (0.0-0.7); #Lymphocytes 1.5 thou/uL (1.20-3.40); #Monocytes 0.7 thou/uL (0.11-0.59); #Neutrophils 3.4 thou/uL (1.40-6.50); %Basophils 0.8 % (0.0-1.0); %Eosinophils 2.3 % (0.0-10.0); %Lymphocytes 25.3 % (21.0-51.0); %Monocytes 12.1 % (0.0-10.0); %Neutrophils 59.5 % (42.0-75.0); Hemoglobin 9.5 g/dL (12.0-16.0); Mean Corpuscular HGB CONC 32.8 g/dL (32.0-36.0); Mean Corpuscular Hemoglobin 28.6 pg (27.0-31.0); Mean Corpuscular Volume 87.1 fl (81.0-99.0); Mean Platelet Volume 7.8 fL (7.4-10.4); Platelet Count 160 thou/uL (130-400); RBC Distribution Width 15.8 % (11.5-14.5); Red Blood Cell (RBC) Count 3.34 mill/uL (4.20-5.40); White Blood Cell (WBC) Count 5.8 thou/uL (4.8-10.8)
[2017-07-11 05:18] LABS: ALT (SGPT) Less than 7 U/L (8-55); AST (SGOT) 10 U/L (5-34); Albumin 3.6 g/dL (3.4-4.8); Alkaline Phosphatase 84 U/L (40-150); Anion Gap 12 mmol/L (10-20); BUN (Urea Nitrogen) 31 mg/dL (9.8-20.1); Bilirubin, Total 0.3 mg/dL (0.2-1.2); Calc. Creatinine Clearance 0 mL/min (70-130); Calcium 10.5 mg/dL (7.8-10.44); Carbon Dioxide 33 mmol/L (23-31); Chloride 92 mmol/L (98-107); Estimated GFR-MDRD 10; Globulin 3.7 g/dL (2.4-3.5); Glucose 108 mg/dL (80-115); Potassium 4.2 mmol/L (3.5-5.1); Protein, Total 7.3 g/dL (6.0-8.3); Sodium 133 mmol/L (136-145)
--- NOTE | 2017-07-11 09:08 | RAD ---
CHEST 1 VIEW ABDOMEN 2 VIEWS: HISTORY: Abdominal pain. Bowel obstruction. FINDINGS: Cardiac silhouette is magnified and enlarged. Pulmonary vasculature is engorged and favored to accou nt for density at the retrocardiac area of the left lung base, as the left hemidiaphragm remains chioma p. There is elevation of the right hemidiaphragm. No evidence of pneumothorax. Degenerative change s at each shoulder. A large amount of stool is apparent throughout the colon and rectum with air fluid levels on the decu bitus view within the colon. Small bowel is distended with gas, but no differential air fluid levels . No free intraperitoneal gas. Calcification over the arterial structures. IMPRESSION: 1. Constipation. 2. Atherosclerosis. 3. Cardiomegaly with pulmonary vascular congestion. Clinical correlation regarding other signs and symptoms of congestive heart failure is required. POS: [facility]
== END 2017-07-11 07:09 | disposition home or self-care (01) ==
LOC: ERS 03:58
DX: K59.00 Constipation, unspecified (principal); E11.9 Type 2 diabetes mellitus without complications; I11.0 Hypertensive heart disease with heart failure; I50.9 Heart failure, unspecified
CPT/HCPCS: 36415; 74022; 80053; 82274; 85025

== ENCOUNTER 2017-11-14 18:08 | Observation (INO) | payer MEDICARE, MEDICAID ==
[2017-11-14 20:03] LABS: #Eosinphils 0.1 thou/uL (0.0-0.7); #Lymphocytes 1.3 thou/uL (1.20-3.40); #Monocytes 0.5 thou/uL (0.11-0.59); #Neutrophils 2.7 thou/uL (1.40-6.50); %Basophils 0.4 % (0.0-1.0); %Eosinophils 2.9 % (0.0-10.0); %Lymphocytes 28.2 % (21.0-51.0); %Monocytes 10.7 % (0.0-10.0); %Neutrophils 57.9 % (42.0-75.0); Hemoglobin 12.6 g/dL (12.0-16.0); Mean Corpuscular HGB CONC 33.6 g/dL (32.0-36.0); Mean Corpuscular Hemoglobin 27.5 pg (27.0-31.0); Mean Corpuscular Volume 81.9 fL (78.0-98.0); Mean Platelet Volume 9.2 fL (7.4-10.4); Platelet Count 142 thou/uL (130-400); RBC Distribution Width 16.5 % (11.5-14.5); Red Blood Cell (RBC) Count 4.57 mill/uL (4.20-5.40); White Blood Cell (WBC) Count 4.7 thou/uL (4.8-10.8)
[2017-11-14 20:29] LABS: CKMB 0.8 ng/mL (0-6.6); Troponin I 0.047 ng/mL (< 0.028)
[2017-11-14 20:32] LABS: ALT (SGPT) 9 U/L (8-55); AST (SGOT) 16 U/L (5-34); Alkaline Phosphatase 81 U/L (40-150); Anion Gap 16 mmol/L (10-20); BUN (Urea Nitrogen) 27 mg/dL (9.8-20.1); Bilirubin, Total 0.3 mg/dL (0.2-1.2); Calc. Creatinine Clearance 0 mL/min (70-130); Calcium 10.1 mg/dL (7.8-10.44); Carbon Dioxide 32 mmol/L (23-31); Chloride 95 mmol/L (98-107); Estimated GFR-MDRD 14; Globulin 4.4 g/dL (2.4-3.5); Glucose 278 mg/dL (80-115); Potassium 3.9 mmol/L (3.5-5.1); Protein, Total 8.4 g/dL (6.0-8.3); Sodium 139 mmol/L (136-145)
--- NOTE | 2017-11-14 21:15 | RAD ---
LEFT SHOULDER: 11/14/17 Three views. INDICATIONS: Fall from wheelchair with injury and pain to shoulder. Moderate degenerative changes at the glenohumeral joint. AC joint is normally aligned. No fracture or dislocation seen. IMPRESSION: Degenerative changes at the shoulder. POS: [facility]
--- NOTE | 2017-11-14 21:16 | RAD ---
PORTABLE CHEST: 11/14/17 HISTORY: Chest pain. COMPARISON: 04/07/17 The heart is enlarged and there is vascular congestion. No evidence of confluent infiltrate and no si gnificant effusion. Similar findings were present on prior exam. IMPRESSION: Cardiomegaly and mild vascular congestion. POS: [facility]
--- NOTE | 2017-11-14 21:33 | CT ---
CT HEAD WITHOUT CONTRAST: 11/14/17 Multiple axial tomograms obtained through the head without IV enhancement. INDICATIONS: Fell from wheelchair with injury to head. Comparison made to exam of 04/16/17. Ventricles have normal size and position. 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 This is a stable finding. There is no evidence of acute hemorrhag e, mass or infarct. Sinuses and mastoids are well aerated. There is scattered low density foci in the calvarium which are stable. IMPRESSION: No acute process. POS: [facility]
--- NOTE | 2017-11-14 21:45 | CT ---
CT CERVICAL SPINE: 11/14/17 Multiple axial tomograms obtained through the cervical spine with multiplanar reconstruction. INDICATIONS: Fell from wheelchair with neck pain. Cervical vertebral maintain height and alignment. The vertebral bodies show an abnormal mottled appea ritchie. Numerous small punched out lucency foci are seen throughout the visualized vertebra. Considera tions include multiple myeloma. Recommend clinical correlation and evaluation. There is no evidence of fracture. There are mild to moderate degenerative changes. IMPRESSION: 1. No evidence of acute fracture. 2. Abnormal mottled density to the visualized vertebrae. Recommend clinical correlation regardin g the diffuse osseous process such as multiple myeloma. POS: [facility]
[2017-11-15] MEDS ORDERED: Nitroglycerin 0.4 MG TAB (25 Tab Bottle) PO PRN (00:45)
[2017-11-15] MEDS ORDERED: Acetaminophen 325 MG TAB PO PRN (00:46)
[2017-11-15] MEDS ORDERED: Ondansetron HCl/PF 4 MG/2 ML Vial IVP PRN (00:46)
[2017-11-15] MEDS ORDERED: Docusate 100 MG CAP PO PRN (00:48)
[2017-11-15 00:55] LABS: CKMB 0.7 ng/mL (0-6.6); Troponin I 0.049 ng/mL (< 0.028)
[2017-11-15] MEDS ORDERED: Aspirin 325 MG TAB PO SCH ×2 (01:00→08:00)
[2017-11-15 03:44] LABS: #Eosinphils 0.2 thou/uL (0.0-0.7); #Lymphocytes 1.5 thou/uL (1.20-3.40); #Monocytes 0.6 thou/uL (0.11-0.59); #Neutrophils 2.8 thou/uL (1.40-6.50); %Basophils 0.7 % (0.0-1.0); %Eosinophils 3.8 % (0.0-10.0); %Monocytes 10.7 % (0.0-10.0); %Neutrophils 54.7 % (42.0-75.0); Hemoglobin 12.2 g/dL (12.0-16.0); Mean Corpuscular HGB CONC 33.5 g/dL (32.0-36.0); Mean Corpuscular Hemoglobin 27.2 pg (27.0-31.0); Mean Corpuscular Volume 81.3 fL (78.0-98.0); Mean Platelet Volume 8.7 fL (7.4-10.4); Platelet Count 146 thou/uL (130-400); RBC Distribution Width 16.2 % (11.5-14.5); Red Blood Cell (RBC) Count 4.48 mill/uL (4.20-5.40); White Blood Cell (WBC) Count 5.1 thou/uL (4.8-10.8)
[2017-11-15 04:02] LABS: Anion Gap 15 mmol/L (10-20); BUN (Urea Nitrogen) 32 mg/dL (9.8-20.1); Calc. Creatinine Clearance 0 mL/min (70-130); Calcium 10.1 mg/dL (7.8-10.44); Carbon Dioxide 32 mmol/L (23-31); Chloride 98 mmol/L (98-107); Estimated GFR-MDRD 13; Glucose 107 mg/dL (80-115); Potassium 4.1 mmol/L (3.5-5.1); Sodium 141 mmol/L (136-145)
[2017-11-15 04:20] VITALS: BMI 31.9
[2017-11-15] MEDS ORDERED: Ferrous Sulfate 325 MG TAB PO SCH (08:00)
[2017-11-15] MEDS ORDERED: Carvedilol 25 MG TAB PO SCH (08:00)
[2017-11-15 08:48] LABS: Troponin I 0.066 ng/mL (< 0.028)
[2017-11-15] MEDS ORDERED: Dextrose 50% Abboject 50 ML SYRINGE SLOW IVP PRN (08:50)
[2017-11-15] MEDS ORDERED: Dextrose 5% in Water 1,000 ML IV PRN (08:50)
[2017-11-15] MEDS ORDERED: Insulin Regular 300 UNITS/3 ML VIAL SC PRN ×2 (08:50)
[2017-11-15] MEDS ORDERED: Fleet Enema 133 ML BOT PR PRN (08:53)
[2017-11-15] MEDS ORDERED: HYDROcodone/Acetaminophen 5/325 mg Tablet PO PRN (08:56)
[2017-11-15] MEDS ORDERED: Fentanyl 100 MCG/2 ML VIAL SLOW IVP PRN (08:56)
[2017-11-15] MEDS ORDERED: traMADol HCl 50 MG TAB PO PRN (08:56)
[2017-11-15] MEDS ORDERED: Losartan 25 MG TAB PO SCH (09:00)
[2017-11-15] MEDS ORDERED: Aspirin 81 mg Enteric Coated Tablet PO SCH (09:00)
[2017-11-15] MEDS ORDERED: Amlodipine 10 MG TAB PO SCH (09:00)
[2017-11-15] MEDS ORDERED: Cinacalcet HCl 30 MG TAB PO SCH (09:00)
[2017-11-15] MEDS ORDERED: Gabapentin 300 MG CAP PO SCH (09:00)
[2017-11-15] MEDS ORDERED: cloNIDine 0.2 MG TAB PO SCH (09:00)
[2017-11-15] MEDS ORDERED: Polyethylene Glycol 3350 17 GM Packet PO SCH (09:00)
[2017-11-15] MEDS: Sevelamer Carbonate 800 MG TAB PO SCH ×2 (09:09→13:24)
[2017-11-15] MEDS: Heparin 5,000 UNITS/ML VIAL SC SCH ×2 (09:11→16:41)
[2017-11-15] MEDS: Senokot S 8.6-50 MG TAB PO SCH ×2 (09:21→09:31)
[2017-11-15] MEDS ORDERED: Bisacodyl 10 MG SUPP PR SCH (09:30)
--- NOTE | 2017-11-15 13:08 | RAD ---
THREE VIEWS OF THE RIGHT ANKLE: INDICATION: Status post fall with joint pain. IMPRESSION: No acute fracture or subluxation is evident. There is mild pes planus deformity. There are scattere d vascular calcifications within the soft tissues. POS: [facility]
--- NOTE | 2017-11-15 13:09 | RAD ---
THREE VIEWS OF THE LEFT ANKLE: INDICATION: Fall with ankle pain. COMPARISON: None. IMPRESSION: No acute fracture or subluxation is evident. There is diffuse osteopenia. There is mild pes planus deformity of the foot. POS: [facility]
--- NOTE | 2017-11-15 13:10 | RAD ---
FOUR VIEWS OF THE LEFT KNEE: INDICATION: Fall with left knee joint pain. COMPARISON: None. FINDINGS: There is severe osteoarthrosis of the left knee. No acute fracture or subluxation is evident. No alyssa int capsular distention is noted. There is diffuse osteopenia. IMPRESSION: Severe osteoarthrosis of the left knee. No acute osseous abnormality. POS: [facility]
--- NOTE | 2017-11-15 13:11 | RAD ---
FOUR VIEWS OF THE RIGHT KNEE: INDICATION: Fall with right knee pain. COMPARISON: None. FINDINGS: No acute fracture or subluxation is evident. There is severe osteoarthrosis of the right knee. No j oint capsular distension is evident. IMPRESSION: Severe osteoarthrosis of the right knee. POS: [facility]
--- NOTE | 2017-11-15 13:12 | RAD ---
TWO VIEWS OF THE RIGHT HIP: INDICATION: Fall with right hip pain. COMPARISON: None. FINDINGS: No acute fracture or subluxation is evident. There is prominent vascular calcification within the ad jacent soft tissues. IMPRESSION: No acute osseous abnormality. POS: [facility]
--- NOTE | 2017-11-15 13:12 | RAD ---
TWO VIEWS OF THE LEFT HIP: INDICATION: Fall with left hip pain. COMPARISON: None. FINDINGS: No acute fracture or subluxation is evident. There is moderate degenerative arthrosis of the left hi p. There is a prominent amount of retained stool within the rectum. IMPRESSION: No acute osseous abnormality. POS: [facility]
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
[2017-11-15 15:50] VITALS: BP 140/65; TEMP 98.1
[2017-11-15] MEDS ORDERED: Atorvastatin Calcium 20 MG TAB PO SCH (21:00)
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
== END 2017-11-15 16:53 | disposition home or self-care (01) ==
LOC: ERS 18:08 → 2SE 11-15
PROVIDERS: ADMIT Hospitalist; ATTEND Hospitalist
DX: R42 Dizziness and giddiness (principal); I13.2 Hypertensive heart and chronic kidney disease with heart failure and with stage 5 chronic kidney disease, or end stage renal disease; E11.22 Type 2 diabetes mellitus with diabetic chronic kidney disease; N18.6 End stage renal disease; I50.32 Chronic diastolic (congestive) heart failure; D63.1 Anemia in chronic kidney disease; M19.90 Unspecified osteoarthritis, unspecified site; R79.89 Other specified abnormal findings of blood chemistry; N25.81 Secondary hyperparathyroidism of renal origin; E78.5 Hyperlipidemia, unspecified; E66.9 Obesity, unspecified; Z68.31 Body mass index [BMI] 31.0-31.9, adult; Z79.82 Long term (current) use of aspirin; Z79.899 Other long term (current) drug therapy; Z99.2 Dependence on renal dialysis; V79.9XXA Bus occupant (driver) (passenger) injured in unspecified traffic accident, initial encounter
CPT/HCPCS: 70450; 71045; 72125; 73030; 73502 ×2; 73564 ×2; 73610 ×2; 80048; 80053; 82553 ×2; 82962; 84484 ×3; 85025 ×2; 93005; 97139; 99285; G0378; 36415; 36416; J1644